=== PATIENT | male | born 1955 | race Caucasian/White ===

== ENCOUNTER 2025-07-04 22:13 | Inpatient (IN) ==
[2025-07-04] MEDS: ALBUT/IPRATROP 3MG/0.5MG NEB 3 ML VIAL INH STA (22:28)
[2025-07-04] MEDS: ALBUT/IPRATROP 3MG/0.5MG NEB 3 ML VIAL ONE (22:28)
--- NOTE | 2025-07-04 22:38 | Emergency Department Note ---
History of Present Illness General Chief complaint: Shortness of Breath/Dyspnea Stated complaint: TROUBLE BREATHING Time Seen by Provider: 07/04/25 22:15 History of Present Illness This 70-year-old male on warfarin with a past medical history of A-fib and diabetes presents the ER for acute onset of shortness of breath. No history of heart failure, COPD or asthma. Patient does not smoke. Patient states this afternoon he started feeling short of breath and got progressively worse. He was concerned and came in. Patient denies fever, chills, abdominal pain, leg pain or swelling. He is on Trulicity for diabetes. Home Medications Medication Instructions Recorded Confirmed Type metoprolol succinate 25 mg 50 mg PO BID 01/01/21 07/04/25 History tablet,extended release 24 hr lisinopril 10 mg tablet 10 mg PO QAM 01/04/23 07/04/25 History warfarin 5 mg tablet 5 mg PO QPM 01/04/23 07/04/25 History dulaglutide 3 mg/0.5 mL 3 mg subcut WK 07/04/25 07/04/25 History [facility] gabapentin 400 mg capsule 400 mg PO TID 07/04/25 07/04/25 History polyethylene glycol 3350 17 17 g PO DAILY PRN Constipation 07/04/25 07/04/25 History gram/dose oral powder (Miralax) Allergies Allergy/AdvReac Type Severity Reaction Status Date / Time Latex, Natural Rubber Allergy Intermediate Rash Verified 07/04/25 23:28 Past Med/Surg History Problem List (Updated 07/05/25 @ 01:22 by Salma Hughes PA-C) Subtherapeutic international normalized ratio (INR) (Acute) New onset of congestive heart failure (Acute) COVID-19 (Acute) Hypertension Dislocation of proximal interphalangeal joint of right little finger (Acute) Fall (Acute) Head injury (Acute) Scalp laceration (Acute) Medical History Atrial fibrillation Surgical History No pertinent past surgical history Social History Smoking Status: Never smoker Preferred Language: Austrian Feels Safe at Home: Yes Review of Systems A total of 10 systems reviewed and were otherwise negative Physical Exam Vital Signs Vital Signs - 24 hr 07/04/25 22:14 07/04/25 22:23 07/04/25 22:33 Temperature 37 C Temperature Source Temporal Artery Scan Pulse Rate 109 H 124 H Pulse Rate from SpO2 Sensor Pulse Rhythm Regular Pulse Strength Normal Respiratory Rate 30 H Respiratory Effort / Characteristics Non-Labored Spontaneous Respiratory Depth Normal Respiratory Pattern Regular Blood Pressure 184/122 H Blood Pressure Mean 142 Blood Pressure Position Sitting Pulse Oximetry 92 100 Oxygen Delivery Method Room Air Aerosol Mask Sepsis Recent Fever Within 48 Hours No Sepsis New/Unexplained Change in Mental Status N/A Sepsis Action Taken by Nursing No Action Required 07/04/25 22:33 07/04/25 22:45 07/04/25 23:30 Temperature 37.1 C Temperature Source Pulse Rate 124 H 143 H Pulse Rate from SpO2 Sensor Pulse Rhythm Pulse Strength Respiratory Rate 22 22 Respiratory Effort / Characteristics Respiratory Depth Respiratory Pattern Blood Pressure 160/111 H 166/107 H Blood Pressure Mean 127 126 Blood Pressure Position Pulse Oximetry 99 92 Oxygen Delivery Method Aerosol Mask Nebulizer Sepsis Recent Fever Within 48 Hours Sepsis New/Unexplained Change in Mental Status Sepsis Action Taken by Nursing 07/04/25 23:45 07/04/25 23:45 07/05/25 00:00 Temperature Temperature Source Pulse Rate 83 81 83 Pulse Rate from SpO2 Sensor 83 Pulse Rhythm Pulse Strength Respiratory Rate 22 18 20 Respiratory Effort / Characteristics Respiratory Depth Respiratory Pattern Blood Pressure 129/79 129/79 131/74 Blood Pressure Mean 95 87 93 Blood Pressure Position Pulse Oximetry 93 94 92 Oxygen Delivery Method Sepsis Recent Fever Within 48 Hours Sepsis New/Unexplained Change in Mental Status Sepsis Action Taken by Nursing 07/05/25 00:15 07/05/25 00:40 07/05/25 00:45 Temperature Temperature Source Pulse Rate 101 H 84 107 H Pulse Rate from SpO2 Sensor Pulse Rhythm Pulse Strength Respiratory Rate 20 18 22 Respiratory Effort / Characteristics Respiratory Depth Respiratory Pattern Blood Pressure 145/95 H 150/110 H 154/92 H Blood Pressure Mean 108 128 118 Blood Pressure Position Pulse Oximetry 94 93 94 Oxygen Delivery Method Sepsis Recent Fever Within 48 Hours Sepsis New/Unexplained Change in Mental Status Sepsis Action Taken by Nursing 07/05/25 01:06 Temperature Temperature Source Pulse Rate 95 H Pulse Rate from SpO2 Sensor 92 H Pulse Rhythm Pulse Strength Respiratory Rate 22 Respiratory Effort / Characteristics Respiratory Depth Respiratory Pattern Blood Pressure 159/104 H Blood Pressure Mean 122 Blood Pressure Position Pulse Oximetry 93 Oxygen Delivery Method Sepsis Recent Fever Within 48 Hours Sepsis New/Unexplained Change in Mental Status Sepsis Action Taken by Nursing VITALS: Vitals are noted on the nurse's note and reviewed by myself. Vital signs stable. GENERAL: Pleasant gentleman who appears short of breath working to breathe, in acute distress, nondiaphoretic, well-developed well-nourished. SKIN: Capillary reflex less than 2 seconds. HEENT: Normocephalic. PERRLA. EOMI. Nares patent. Mucous membranes moist. Neck is supple without nuchal rigidity. HEART: Tachycardic irregularly irregular LUNGS: Diffuse inspiratory and end expiratory wheezes . + retractions + accessory muscle use. ABDOMEN: Positive bowel sounds x 4. Normal tympanic percussion. Soft, nontender, without masses or organomegaly. Evans sign negative. No guarding or rebound tenderness. no CVA tenderness MUSCULOSKELETAL: No gross musculoskeletal defects. NEURO: Patient was alert and oriented to person place and time. No focal neurological deficits. Course Administered Medications Discontinued Medications Albuterol (Albut/Ipratrop 3mg/0.5mg Neb 3 Ml Vial) Confirm Administered Dose 3 ml .ROUTE .STK-MED ONE Stop: 07/04/25 22:24 Last Admin: 07/04/25 22:28 Dose: 3 ml Documented By: ROLANDO Albuterol (Albut/Ipratrop 3mg/0.5mg Neb 3 Ml Vial) 3 ml INH NOW STA Stop: 07/04/25 22:25 Last Admin: 07/04/25 22:28 Dose: 3 ml Documented By: ROLANDO Diltiazem HCl (Diltiazem Hcl 5 Mg/Ml 5 Ml Vial) 20 mg IV NOW STA Stop: 07/04/25 23:17 Last Admin: 07/04/25 23:30 Dose: 20 mg Documented By: DONAVAN Co-signed By: ROLANDO Furosemide (Furosemide 40 Mg/4 Ml Vial) 40 mg IV ONE ONE Stop: 07/05/25 00:19 Last Admin: 07/05/25 00:41 Dose: 40 mg Documented By: ROLANDO Ioversol (Optiray 320 100ml) 120 ml IV ONCE ONE Stop: 07/05/25 00:22 Last Admin: 07/05/25 00:21 Dose: 120 ml Documented By: NATACHA Methylprednisolone (Methylprednisolone 125 Mg/2 Ml Vial) 125 mg IV NOW STA Stop: 07/04/25 22:25 Last Admin: 07/04/25 22:35 Dose: 125 mg Documented By: ROLANDO Metoprolol Succinate (Metoprolol Succ 50mg Ext Rel Tab) 50 mg PO NOW STA Stop: 07/05/25 01:06 Last Admin: 07/05/25 01:19 Dose: 50 mg Documented By: ROLANDO Potassium Chloride (Potassium Chloride Crtab 20 Meq Tabcr) 40 meq PO NOW STA Stop: 07/05/25 01:06 Last Admin: 07/05/25 01:19 Dose: 40 meq Documented By: ROLANDO Medical Decision Making Medical Records Attestation: I reviewed the patient's medical records. Home Medications Current Medication List: was personally reviewed by me Laboratory Data Attestation: I reviewed the patient's lab results. 07/04/25 22:30 07/04/25 22:30 Lab Results 07/04/25 07/04/25 07/05/25 Range/Units 22:30 23:35 00:57 WBC 7.61 (4.8-10.8) K/ul RBC 4.74 (4.70-6.10) M/uL Hgb 16.0 (14.0-18.0) g/dl Hct 45.1 (42.0-52.0) % MCV 95.1 (80.0-100.0) fL MCH 33.8 (25.0-34.0) pg MCHC 35.5 (32.0-36.0) g/dL RDW Std Deviation 43.3 (36.4-46.3) fL RDW Coeff of Robi 12.5 (11.5-14.5) % Plt Count 180 (130-400) K/uL MPV 10.8 (9.4-12.4) fL Immature Gran % (Auto) 0.5 % Neut % (Auto) 70.4 % Lymph % (Auto) 17.5 % [place] % (Auto) 7.5 % Eos % (Auto) 3.3 % Baso % (Auto) 0.8 % Neut # (Auto) 5.36 (1.40-6.50) K/uL Lymph # (Auto) 1.33 (1.20-3.40) K/uL [place] # (Auto) 0.57 (0.11-0.59) K/uL Eos # (Auto) 0.25 (0.00-0.50) K/uL Baso # (Auto) 0.06 (0.00-0.20) K/uL Immature Gran # (Auto) 0.04 (0.01-0.20) K/uL PT 19.7 H (9.0-12.0) Seconds INR 1.9 H (0.9-1.1) APTT 33 H (21-31) Seconds PTT Ratio 1.2 VBG pH Cancelled 7.42 H VBG pCO2 Cancelled 49 VBG pO2 Cancelled 41 VBG HCO3 Cancelled 32 VBG O2 Saturation Cancelled 71.6 VBG Base Excess Cancelled 6.1 Barometric Pressure Cancelled Sodium 142 (136-145) mmol/L Potassium 3.8 (3.5-5.1) mmol/L Chloride 103 (98-107) mmol/L Carbon Dioxide 30 (21-32) mmol/L Anion Gap 9 (3-11) BUN 15 (6-23) mg/dl Creatinine 1.23 (0.6-1.4) mg/dl Est Cr Clr Drug Dosing 63.6 ml/min eGFR 62.38 BUN/Creatinine Ratio 12.2 (10-20) Glucose 153 H (70-99(Fasting)) mg/dl Calcium 9.7 (8.6-10.3) mg/dl Magnesium 2.0 (1.7-2.4) mg/dl Total Bilirubin 0.8 (0.2-1.0) mg/dl AST 22 (13-39) U/L ALT 21 (7-52) U/L Alkaline Phosphatase 63 (34-104) U/L Troponin I High Sens 9.5 (0-20) pg/ml B-Natriuretic Peptide 207 H (0-100) pg/ml Total Protein 8.1 (6.0-8.3) gm/dl Albumin 5.0 (3.4-5.0) gm/dl Globulin 3.1 (2.5-4.0) gm/dl Albumin/Globulin Ratio 1.6 (0.9-2) Urine Color Yellow Urine Appearance Clear (Clear) Urine pH 7.0 (4.5-7.5) Ur Specific [place] 1.028 (1.000-1.030) Urine Protein 2+ H (Negative) Urine Glucose (UA) Negative (Negative) Urine Ketones Negative (Negative) Urine Blood Negative (Negative) Urine Nitrite Negative (Negative) Urine Bilirubin Negative (Negative) Urine Urobilinogen Negative (Negative) Ur Leukocyte Esterase Negative (Negative) Urine WBC (Auto) 0-5 (0-5) /hpf Urine RBC (Auto) 0-2 (0-2) /hpf U Hyaline Cast (Auto) 0-2 (0-2) /lpf U Epithel Cells (Auto) 0-2 (0-2) /hpf Urine Bacteria (Auto) None Seen (None Seen) Urine Comment Imaging Data Attestation: I personally reviewed and interpreted this imaging study as follows: Radiologist's Impression: Chest X-Ray 07/04/25 22:24 Exam(s): XR CXR 1 VIEW EXAM: XR Chest, 1 View CLINICAL HISTORY: Reason for exam: Dyspnea. TECHNIQUE: Frontal view of the chest. COMPARISON: X-ray chest: 01/04/2023 FINDINGS: Lungs: Hyperinflated lungs. Bilateral bronchial wall and perihilar bronchovascular/interstitial thickening increased since comparison.. No consolidation. Pleural space: Unremarkable. No pneumothorax. Heart: There is cardiomegaly. Mediastinum: Persistently widened superior mediastinum. Bones/joints: Osteopenia. No acute fracture. IMPRESSION: Cardiomegaly and mild pulmonary vascular congestion. Recommend clinical correlation. . Electronically signed by: Amando Dia MD, DABR 07/05/25 00:25 AM Chest CTA 07/05/25 00:18 EXAM: CT angio chest PE protocol CLINICAL HISTORY: PE TECHNIQUE: Contiguous axial images were obtained from the neck base through the upper abdomen following intravenous administration of iodinated contrast material. Angiographic images were processed, 3D MIP images were acquired for interpretation. If IV contrast material had not been administered, the likelihood of detecting abnormalities relevant to the patient's condition would have been substantially decreased. Coronal and sagittal 3-D MIPs were likewise performed and indicated to increase the sensitivity of detectin diffuse clinically relevant pathology. CT scan was performed according to ALARA (as low as reasonable achievable). COMPARISON: None. FINDINGS: Few atelectatic bands are noted involving bilateral lung bases. Tiny nodule of size 6 mm is noted involving right lower lobe - appears lung RADS category 2 /benign. Adequate contrast bolus without evidence of pulmonary embolism. The central airways are patent. Rest of lungs are clear. No pleural effusion. The heart, aorta, and pulmonary arteries are of normal size and configuration. There are no appreciable coronary artery and aortic atherosclerotic calcifications. No pericardial effusion is identified. The thyroid is unremarkable. No mediastinal, hilar, or axillary lymphadenopathy is noted. No suspicious lytic or sclerotic osseous lesions are identified. IMPRESSION: No evidence of pulmonary embolism Few atelectatic bands are noted involving bilateral lung bases. Tiny nodule of size 6 mm is noted involving right lower lobe - appears lung RADS category 2 /benign. Electronically signed by Orestes Leblanc 07-05-2025 01:28 AM MDM Narrative Prior records/ancillary studies reviewed. Triage Nursing notes reviewed. Additional history obtained from the family. The patient's history was concerning for respiratory difficulties. Differential diagnosis: Etiologies such as infections, reactive airway disease, pneumonia, pneumothorax, COPD, CHF, cardiac ischemia, pulmonary embolism, musculoskeletal, gastrointestinal, as well as others were entertained. Physical examination: As above. ER treatment provided: An order was placed for continuous cardiac monitoring. The monitor shows a rate of 60-1 50 with a A-fib rhythm per my interpretation. Nebulizer, Solu-Medrol, Cardizem Lasix was ordered On reassessment the patient felt better. Diagnostic interpretation by me: The electrocardiogram was ordered for SOB. ECG: Irregularly irregular with no acute ST-T wave changes, rate 132. Impression A-fib with RVR independently interpreted by myself The labs Independently Interpreted by myself revealed subtherapeutic INR Elevated BNP, negative troponin, hyperglycemia that DKA Imaging studies: Imaging was reviewed and read by radiology HEART SCORE: Hx: high/mod/low suspicion: 1 ECG: ST depression/nonspecific changes/normal: 1 Age: Greater than 65/45-64/less than 45: 2 Risk factors: (Hypertension, hyperlipidemia, diabetes, coronary disease, tobacco use, cocaine use): 2 Troponin: Greater than 2 times normal limits/1-2 times normal limits/normal: 0 Total: 6 Consultation: A consultation was placed with the hospitalist. The case was discussed and diagnostics were reviewed. The patient was evaluated in the ER for further treatment. This appears to be consistent with new onset heart failure and subtherapeutic INR. Patient felt better to be medicated as above. Medicine was consulted and case was discussed. He will be evaluated for admission. By the evaluation outlined above emergent etiologies such as pulmonary embolism, reactive airway disease, pneumonia, pneumothorax, musculoskeletal, serious bacterial infections, as well as others were deemed relatively unlikely. The pt informed about the findings as listed above. All questions were answered and pleased with the treatment. The chart was completed utilizing [employer] Speech voice recognition software. Grammatical errors, random word insertions, pronoun errors, and incomplete sentences are an occassional consequence of this system due to software limitations, ambient noise, and hardware issues. Any formal questions or concerns about the content, text, or information contained within the body of this dictation should be directly addressed to the physician seed laboratory assistant for clarification. Impression & Plan New onset of congestive heart failure, Subtherapeutic international normalized ratio (INR) Discharge Plan Visit Data Chief Complaint: Shortness of Breath/Dyspnea Stated Complaint: TROUBLE BREATHING ED Provider: [facility] Midlevel Provider: Salma Hughes Discharge Problem: New onset of congestive heart failure, Subtherapeutic international normalized ratio (INR) Patient Disposition: Admitted As Inpatient Condition: Good Forms Stand Alone Forms: [employer] Prescriptions Prescriptions: No Action metoprolol succinate 25 mg tablet extended release 24 hr 50 mg PO BID lisinopril 10 mg tablet 10 mg PO QAM warfarin 5 mg tablet 5 mg PO QPM gabapentin 400 mg capsule 400 mg PO TID polyethylene glycol 3350 [Miralax] 17 gram/dose Powder 17 g PO DAILY PRN (Reason: Constipation) Trulicity 3 mg/0.5 mL pen injector 3 mg SUBCUT WK Rx Instructions: [facility] Referrals Referrals: Kevin Hawthorne MD [Primary Care Provider] -
[2025-07-04 22:55] LABS: Hematocrit (blood only) 45.1 % (42.0-52.0); Hemoglobin 16.0 g/dl (14.0-18.0); Immature Granulocytes # (auto) 0.04 K/uL (0.01-0.20); Immature Granulocytes % (auto) 0.5 %; Mean Corpuscular Hemoglobin 33.8 pg (25.0-34.0); Mean Corpuscular Volume 95.1 fL (80.0-100.0); Platelet Count 180 K/uL (130-400); RDW Standard Deviation 43.3 fL (36.4-46.3); Red Blood Count 4.74 M/uL (4.70-6.10); White Blood Count 7.61 K/ul (4.8-10.8)
[2025-07-04 23:20] LABS: INR 1.9 (0.9-1.1); Partial Thromboplastin Time 33 Seconds (21-31); Prothrombin Time 19.7 Seconds (9.0-12.0)
[2025-07-04 23:22] LABS: Alanine Aminotransferase 21.0 U/L (7-52); Albumin Globulin Ratio 1.6 (0.9-2); Alkaline Phosphatase 63.0 U/L (34-104); Anion Gap 9.0 (3-11); Bilirubin,Total 0.8 mg/dl (0.2-1.0); Blood Urea Nitrogen 15.0 mg/dl (6-23); Calcium 9.7 mg/dl (8.6-10.3); Carbon Dioxide 30.0 mmol/L (21-32); Chloride 103.0 mmol/L (98-107); Creatinine Clr Calc Pharmacy 63.6 ml/min; Globulin 3.1 gm/dl (2.5-4.0); Glucose 153.0 mg/dl (70-99(Fasting)); Magnesium 2.0 mg/dl (1.7-2.4); Potassium 3.8 mmol/L (3.5-5.1); Sodium 142.0 mmol/L (136-145); Total Protein 8.1 gm/dl (6.0-8.3)
[2025-07-05 00:11] LABS: Base Excess VBG 6.1 mEq/L; HCO3 VBG 32 mmol/L; Oxygen Saturation VBG 71.6 %; PCO2 VBG 49 mmHg (38-50); PO2 VBG 41 mmHg; pH VBG 7.42 (7.36-7.41)
[2025-07-05] MEDS: OPTIRAY 320 100ml IV ONE (00:21)
--- NOTE | 2025-07-05 00:26 | XRay Report ---
Exam(s): XR CXR 1 VIEW EXAM: XR Chest, 1 View CLINICAL HISTORY: Reason for exam: Dyspnea. TECHNIQUE: Frontal view of the chest. COMPARISON: X-ray chest: 01/04/2023 FINDINGS: Lungs: Hyperinflated lungs. Bilateral bronchial wall and perihilar bronchovascular/interstitial thickening increased since comparison.. No consolidation. Pleural space: Unremarkable. No pneumothorax. Heart: There is cardiomegaly. Mediastinum: Persistently widened superior mediastinum. Bones/joints: Osteopenia. No acute fracture. IMPRESSION: Cardiomegaly and mild pulmonary vascular congestion. Recommend clinical correlation. . Electronically signed by: Amando Dia MD, NEENAR 07/05/25 00:25 AM
[2025-07-05] MEDS: FUROSEMIDE 40 MG/4 ML VIAL IV ONE ×2 (00:41→14:09)
--- NOTE | 2025-07-05 00:54 | Emergency Department Note ---
ED Visit Note I was consulted by the Advanced Practice Provider. I personally made/approved the management plan and take responsibility for the patient management. This includes the aspects of: -History/Physical -MDM
--- NOTE | 2025-07-05 01:11 | History & Physical Report ---
Date of Service July 05, 2025 Assessment & Plan (1) CHF (congestive heart failure): Plan: Assessment and plan below following discussion of case with ED provider and reviewing patient history/pertinent normal/abnormal diagnostic test results. Acute CHF History of diastolic dysfunction Possibly from uncontrolled hypertension, rapid A-fib, viral RTI Afib on Coumadin, INR slightly subtherapeutic LVH with apical variant HOCM valvular heart disease (mild MR/TR) hyperlipidemia, statin noncompliant as per records DM 2 on Trulicity, well-controlled as of recent hemoglobin A1c of 6.6 last March 2025 Admit to PCU IV Lopressor 1 dose now Titrate home metoprolol Cardiology consult re: CHF BioFire respiratory panel Supportive management presumptive viral illness Basal bolus insulin, ISS BG goal 110-140, carb count coverage DVT prophylaxis. Coumadin INR goal between 2 and 3 Full code Text document was generated using QuadRO[employer] voice recognition software. It may contain grammatical or spelling errors. Kindly contact undersigned for clarification of any documentation item in question. History of Present Illness Chief Complaint: Shortness of breath, palpitations Primary Care Provider: Kevin Hawthorne MD History obtained from patient and records. Medical history significant for diastolic dysfunction (EF 65 to 69%, TTE 2023), A-fib on Coumadin, LVH with apical variant HOCM, valvular heart disease (mild MR/TR), hypertension, hyperlipidemia, DM 2 on Trulicity Last 2011 for syncope resulting in nasal bone fracture. Patient noted cough symptoms productive of clear sputum at home yesterday. SOB without chest pain. No fever, no chills. Not sure about sick contacts. Home COVID-19 test was negative. Worsening SOB with palpitations. Patient unaware of weight gain. Compliant with home meds. Patient noted to be in rapid A-fib upon arrival at the ER. Highest heart rate of 140s. IV Cardizem and Lasix administered at the ER. Medical History as above Surgical History : Tonsillectomy/adenoidectomy Family History : Kidney disease, stroke, DM Personal/Social history : Non-smoker, occasional EtOH intake, retired school licensed journeyman electrician Allergies Allergy/AdvReac Type Severity Reaction Status Date / Time Latex, Natural Rubber Allergy Intermediate Rash Verified 07/04/25 23:28 Home Medications Medication Instructions Recorded Confirmed Type metoprolol succinate 25 mg 50 mg PO BID 01/01/21 07/04/25 History tablet,extended release 24 hr lisinopril 10 mg tablet 10 mg PO QAM 01/04/23 07/04/25 History warfarin 5 mg tablet 5 mg PO QPM 01/04/23 07/04/25 History dulaglutide 3 mg/0.5 mL 3 mg subcut WK 07/04/25 07/04/25 History subcutaneous pen injector (Trulicity) gabapentin 400 mg capsule 400 mg PO TID 07/04/25 07/04/25 History polyethylene glycol 3350 17 17 g PO DAILY PRN Constipation 07/04/25 07/04/25 History gram/dose oral powder (Miralax) Past Med/Surg History Problem List (Updated 07/05/25 @ 06:15 by Eddy Shields MD) CHF (congestive heart failure) Subtherapeutic international normalized ratio (INR) (Acute) New onset of congestive heart failure (Acute) COVID-19 (Acute) Hypertension Dislocation of proximal interphalangeal joint of right little finger (Acute) Fall (Acute) Head injury (Acute) Scalp laceration (Acute) Medical History Atrial fibrillation Surgical History No pertinent past surgical history Social History Smoking Status: Unknown if ever smoked Hx Alcohol Use: No Hx Substance Use: No Preferred Language: Pry[place]in[place] Communication Ability: Effective Bar Supervisor Required: No Beliefs That Will Affect Care: None Current Living Situation: Alone Feels Safe at Home: Yes Safety Concerns: Feels Safe At This Time Review of Systems Review of Systems: As per HPI, all other systems reviewed and negative Physical Exam Physical Exam: GENERAL: Comfortable, pleasant, obese, no respiratory distress SKIN: Normal color, warm HEENT: [place] palpebral conjunctivae, no ptosis, dry buccal mucosa NECK : Supple, short neck, no tenderness CHEST : CTA, no tenderness HEART : Irregular, no obvious murmurs ABDOMEN: Some distention, nontender EXTREMITIES : No LE swelling/tenderness, palpable pulses, no other conspicuous deformities noted NEUROLOGIC : Coherent, no facial asymmetry, no other gross focality Results & Data Results & Data Vital Signs (Past 12 Hours) Vital Signs Temp Pulse Resp BP Pulse Ox O2 Del Method 07/05/25 00:40 84 18 150/110 H 93 07/05/25 00:15 101 H 20 145/95 H 94 07/05/25 00:00 83 20 131/74 92 07/04/25 23:45 81 18 129/79 94 07/04/25 23:45 83 22 129/79 93 07/04/25 23:30 143 H 22 166/107 H 92 07/04/25 22:45 37.1 C 124 H 22 160/111 H 99 Nebulizer 07/04/25 22:33 Aerosol Mask 07/04/25 22:33 100 Aerosol Mask 07/04/25 22:23 124 H 07/04/25 22:14 37 C 109 H 30 H 184/122 H 92 Room Air Laboratory Results Laboratory Results WBC 7.61 K/ul (4.8-10.8) 07/04/25 22:30 RBC 4.74 M/uL (4.70-6.10) 07/04/25 22:30 Hgb 16.0 g/dl (14.0-18.0) 07/04/25 22:30 Hct 45.1 % (42.0-52.0) 07/04/25 22:30 MCV 95.1 fL (80.0-100.0) 07/04/25 22:30 MCH 33.8 pg (25.0-34.0) 07/04/25 22:30 MCHC 35.5 g/dL (32.0-36.0) 07/04/25 22:30 RDW Std Deviation 43.3 fL (36.4-46.3) 07/04/25 22:30 RDW Coeff of Robi 12.5 % (11.5-14.5) 07/04/25 22:30 Plt Count 180 K/uL (130-400) 07/04/25 22:30 MPV 10.8 fL (9.4-12.4) 07/04/25 22:30 Immature Gran % (Auto) 0.5 % 07/04/25 22:30 Neut % (Auto) 70.4 % 07/04/25 22:30 Lymph % (Auto) 17.5 % 07/04/25 22:30 [place] % (Auto) 7.5 % 07/04/25 22:30 Eos % (Auto) 3.3 % 07/04/25 22:30 Baso % (Auto) 0.8 % 07/04/25 22:30 Neut # (Auto) 5.36 K/uL (1.40-6.50) 07/04/25 22:30 Lymph # (Auto) 1.33 K/uL (1.20-3.40) 07/04/25 22:30 [place] # (Auto) 0.57 K/uL (0.11-0.59) 07/04/25 22:30 Eos # (Auto) 0.25 K/uL (0.00-0.50) 07/04/25 22:30 Baso # (Auto) 0.06 K/uL (0.00-0.20) 07/04/25 22:30 Immature Gran # (Auto) 0.04 K/uL (0.01-0.20) 07/04/25 22:30 PT 19.7 Seconds (9.0-12.0) H 07/04/25 22:30 INR 1.9 (0.9-1.1) H 07/04/25 22:30 APTT 33 Seconds (21-31) H 07/04/25 22:30 PTT Ratio 1.2 07/04/25 22:30 VBG pH 7.42 (7.36-7.41) H 07/04/25 23:35 VBG pCO2 49 mmHg (38-50) 07/04/25 23:35 VBG pO2 41 mmHg 07/04/25 23:35 VBG HCO3 32 mmol/L 07/04/25 23:35 VBG O2 Saturation 71.6 % 07/04/25 23:35 VBG Base Excess 6.1 mEq/L 07/04/25 23:35 Barometric Pressure Cancelled 07/04/25 22:30 Sodium 142 mmol/L (136-145) 07/04/25 22:30 Potassium 3.8 mmol/L (3.5-5.1) 07/04/25 22:30 Chloride 103 mmol/L (98-107) 07/04/25 22:30 Carbon Dioxide 30 mmol/L (21-32) 07/04/25 22:30 Anion Gap 9 (3-11) 07/04/25 22:30 BUN 15 mg/dl (6-23) 07/04/25 22:30 Creatinine 1.23 mg/dl (0.6-1.4) 07/04/25 22:30 Est Cr Clr Drug Dosing 63.6 ml/min 07/04/25 22:30 eGFR 62.38 07/04/25 22:30 BUN/Creatinine Ratio 12.2 (10-20) 07/04/25 22:30 Glucose 153 mg/dl (70-99(Fasting)) H 07/04/25 22:30 Calcium 9.7 mg/dl (8.6-10.3) 07/04/25 22:30 Magnesium 2.0 mg/dl (1.7-2.4) 07/04/25 22:30 Total Bilirubin 0.8 mg/dl (0.2-1.0) 07/04/25 22:30 AST 22 U/L (13-39) 07/04/25 22:30 ALT 21 U/L (7-52) 07/04/25 22:30 Alkaline Phosphatase 63 U/L (34-104) 07/04/25 22:30 Troponin I High Sens 9.5 pg/ml (0-20) 07/04/25 22:30 B-Natriuretic Peptide 207 pg/ml (0-100) H 07/04/25 22:30 Total Protein 8.1 gm/dl (6.0-8.3) 07/04/25 22:30 Albumin 5.0 gm/dl (3.4-5.0) 07/04/25 22:30 Globulin 3.1 gm/dl (2.5-4.0) 07/04/25 22:30 Albumin/Globulin Ratio 1.6 (0.9-2) 07/04/25 22:30 Urine Comment 07/05/25 00:57 Impressions Chest X-Ray 07/04/25 22:24 Exam(s): XR CXR 1 VIEW EXAM: XR Chest, 1 View CLINICAL HISTORY: Reason for exam: Dyspnea. TECHNIQUE: Frontal view of the chest. COMPARISON: X-ray chest: 01/04/2023 FINDINGS: Lungs: Hyperinflated lungs. Bilateral bronchial wall and perihilar bronchovascular/interstitial thickening increased since comparison.. No consolidation. Pleural space: Unremarkable. No pneumothorax. Heart: There is cardiomegaly. Mediastinum: Persistently widened superior mediastinum. Bones/joints: Osteopenia. No acute fracture. IMPRESSION: Cardiomegaly and mild pulmonary vascular congestion. Recommend clinical correlation. . Electronically signed by: Amando Dia MD, DANIEL 07/05/25 00:25 AM Diagnostic Findings EKG as per my interpretation :Rate 130, A-fib, normal axis, nonspecific T wave abnormalities
[2025-07-05 01:12] LABS: Appearance Urine Clear (Clear); Bacteria Urine Automated None Seen (None Seen); Cast Urine Automated 0-2 /lpf (0-2); Epithelial Cell Urine Auto 0-2 /hpf (0-2); Glucose Urine UA Negative (Negative); RBC Urine Automated 0-2 /hpf (0-2); WBC Urine Automated 0-5 /hpf (0-5)
[2025-07-05] MEDS: METOPROLOL SUCC 50MG EXT REL TAB PO STA (01:19)
[2025-07-05] MEDS: POTASSIUM CHLORIDE CRTAB 20 MEQ TABCR PO STA (01:19)
--- NOTE | 2025-07-05 01:28 | CT Scan Report ---
EXAM: CT angio chest PE protocol CLINICAL HISTORY: PE TECHNIQUE: Contiguous axial images were obtained from the neck base through the upper abdomen following intravenous administration of iodinated contrast material. Angiographic images were processed, 3D MIP images were acquired for interpretation. If IV contrast material had not been administered, the likelihood of detecting abnormalities relevant to the patient's condition would have been substantially decreased. Coronal and sagittal 3-D MIPs were likewise performed and indicated to increase the sensitivity of detectin diffuse clinically relevant pathology. CT scan was performed according to ALARA (as low as reasonable achievable). COMPARISON: None. FINDINGS: Few atelectatic bands are noted involving bilateral lung bases. Tiny nodule of size 6 mm is noted involving right lower lobe - appears lung RADS category 2 /benign. Adequate contrast bolus without evidence of pulmonary embolism. The central airways are patent. Rest of lungs are clear. No pleural effusion. The heart, aorta, and pulmonary arteries are of normal size and configuration. There are no appreciable coronary artery and aortic atherosclerotic calcifications. No pericardial effusion is identified. The thyroid is unremarkable. No mediastinal, hilar, or axillary lymphadenopathy is noted. No suspicious lytic or sclerotic osseous lesions are identified. IMPRESSION: No evidence of pulmonary embolism Few atelectatic bands are noted involving bilateral lung bases. Tiny nodule of size 6 mm is noted involving right lower lobe - appears lung RADS category 2 /benign. Electronically signed by Orestes Leblanc 07-05-2025 01:28 AM
[2025-07-05] MEDS ORDERED: GLUCAGON FOR INJ 1 MG VIAL SQ PRN (01:51)
[2025-07-05] MEDS ORDERED: GLUCOSE 10 TAB/TUBE PO PRN (01:51)
[2025-07-05] MEDS ORDERED: CARBOHYDRATES FOR HYPOGLYCEMIA PO PRN (01:51)
[2025-07-05] MEDS ORDERED: DEXTROSE 50% 50 ML SYRINGE IV PRN (01:51)
[2025-07-05] MEDS ORDERED: GLUCOSE 40% GEL 15 GM TUBE PO PRN (01:51)
[2025-07-05] MEDS ORDERED: POLYETHYLENE (MIRALAX) 17 GM PACK PO PRN (02:04)
[2025-07-05] MEDS ORDERED: PROMETHAZINE 6.25 MG/50.25 ML BAG IV PRN (02:05)
[2025-07-05] MEDS ORDERED: ACETAMINOPHEN 325 MG TAB PO PRN (02:05)
[2025-07-05] MEDS: INSULIN ASPART PER UNIT CHARGE SC SCH (02:45)
[2025-07-05] MEDS: WARFARIN SOD 5 MG TAB PO ONE (02:46)
[2025-07-05 04:26] LABS: Chlamydia pneumoniae PCR Not Detected (NotDetected); Coronavirus 229E PCR Not Detected (NotDetected); Coronavirus CoV-2 (COVID19)PCR Not Detected (NotDetected); Coronavirus HKU1 PCR Not Detected (NotDetected); Coronavirus NL63 PCR Not Detected (NotDetected); Coronavirus OC43PCR Not Detected (NotDetected); Human Metapneumovirus PCR Not Detected (NotDetected); Parainfluenza Virus 1 PCR Not Detected (NotDetected); Parainfluenza Virus 2 PCR Not Detected (NotDetected); Parainfluenza Virus 3 PCR Not Detected (NotDetected); Parainfluenza Virus 4 PCR Not Detected (NotDetected); Respiratory Syncytial VirusPCR Not Detected (NotDetected); Rhinovirus/Enterovirus PCR Not Detected (NotDetected)
[2025-07-05] MEDS: METOPROLOL TARTRATE 1 MG/ML VIAL IV STA (05:18)
[2025-07-05 05:57] LABS: Hematocrit (blood only) 43.3 % (42.0-52.0); Hemoglobin 15.4 g/dl (14.0-18.0); Mean Corpuscular Hemoglobin 33.8 pg (25.0-34.0); Mean Corpuscular Volume 95.0 fL (80.0-100.0); Platelet Count 179 K/uL (130-400); RDW Standard Deviation 43.1 fL (36.4-46.3); Red Blood Count 4.56 M/uL (4.70-6.10); White Blood Count 5.24 K/ul (4.8-10.8)
[2025-07-05 06:15] LABS: INR 1.8 (0.9-1.1); Prothrombin Time 18.2 Seconds (9.0-12.0)
[2025-07-05 06:25] LABS: Immature Granulocytes # (auto) 0.02 K/uL (0.01-0.20); Immature Granulocytes % (auto) 0.4 %; RBC Morphology Unremarkable
[2025-07-05 06:30] LABS: Anion Gap 10.0 (3-11); Blood Urea Nitrogen 17.0 mg/dl (6-23); Calcium 9.8 mg/dl (8.6-10.3); Carbon Dioxide 28.0 mmol/L (21-32); Chloride 102.0 mmol/L (98-107); Creatinine Clr Calc Pharmacy 65.8 ml/min; Glucose 178.0 mg/dl (70-99(Fasting)); Potassium 4.0 mmol/L (3.5-5.1); Sodium 140.0 mmol/L (136-145); Thyroid Stimulating Hormone 0.428 uIu/ml (0.300-4.500)
--- NOTE | 2025-07-05 08:47 | Cardiology Consultation ---
Date of Consultation July 05, 2025 Assessment & Plan (1) New onset of congestive heart failure: (2) Hypertrophic cardiomyopathy: (3) Permanent atrial fibrillation: (4) Hypertension: Plan 70 year old male who presented to [facility] ED on 07/05/25 for evaluation of worsening shortness of breath over the past couple of days with associated heart racing and lightheadedness. Seen by cardiology today for evaluation of new onset heart failure excerbation. Found to be in AFIB with RVR with heart rates in 140-150s upon admission. CXR upon admission demonstrated cardiomegaly and mild pulmonary vascular congestion. Received IV Cardizem and Lasix in ED. 1. Permanent AFIB (diagnosed 06/08/21; on warfarin), [id number] score 3 (age, HTN, CHF) -AFIB with elevated ventricular rates in 100-110s with intermittent rates in 120-130s upon telemetry review -Continue metoprolol succinate ER 100 mg BID for rate control -Continue warfarin for anticoagulation with INR goal between 2 to 3 -Will consider starting IV diltiazem gtt for rate control pending ECHO 2. Apical varient hypertrophic cardiomyopathy (diagnosed 2014) 3. Acute on chronic HFpEF, NYHA Class III -Respiratory status improving with IV diuresis and remains on room air -Blood pressure remains elevated likely secondary to volume overload -Kidney function and electrolytes remain stable on AM labs -Give one-time dose IV Lasix 40 mg daily this afternoon -ECHO pending today to assess systolic function and asymmetric left ventricular hypertrophy -Continue to monitor and replace electrolytes as needed (goal K+ 4.0; Mg 2.0) -Daily weights via standing scale and document accurate I&Os -Maintain 2L fluid restriction and 2g sodium restriction 3. Hypertension -Blood pressure remains elevated -Continue lisinopril 10 mg daily Case discussed and coordinated with Dr. Rees. Please see Dr. Rees notes for further recommendations. I spent a total of 45 minutes coordinating, documenting, and providing care for this patient excluding time spent in the performance of separately billed services or time spent by another provider/QHP. RADHA Alfred Department of Cardiology Supervising Physician Co-Signing Physician Notes I spent a total of 50 minutes on the date of service in preparation, delivery, and documentation of the care provided to this patient, excluding any time spent in the performance of separately billed services. I have personally performed a history and physical examination on the patient. I have reviewed the advance practitioner's documentation, and I agree with, and take responsibility for the plan of care. History of Present Illness Reason for Consultation: CHF exacerbation Requesting Physician: Eddy Shields MD Attending Physician: Isreal Ayala MD History of Present Illness 70 year old male who presented to [facility] ED on 07/05/25 for evaluation of worsening shortness of breath. Seen by cardiology today for evaluation of new onset heart failure exacerbation. Sitting comfortably on the edge of the bed in no acute distress. Remains on room air. He noticed difficulty breathing while cooking dinner on (07/03). Shortness of breath got progressively worse over the past couple days. It has felt like his heart is pounding with associated lightheadedness. Sleeps laying flat in bed but occasionally sleeps in a recliner. Denies orthopnea or PND. Denies exertional chest discomfort, lightheadedness, dizziness, syncope, worsening edema, abdominal bloating, loss of appetite, or recent weight gain. Has a dry, non-productive cough. Denies fever, chills, muscle aches, nausea, vomiting, congestion, or flu-like symptoms. Social History: Eats a lot of processed food and does not limit intake of salt. Complaint with medications. Denies difficulty affording or adverse effects with medications. Marijuana use. He typically drinks three beers on the weekends. Denies tobacco use. Family History: Father - Tobacco use; Heart disease Past Medical History: 1. Permanent AFIB (diagnosed 06/08/21; on warfarin), [id number] score 2 (age, HTN) 2. Apical varient hypertrophic cardiomyopathy (diagnosed 2014) 3. Hypertension 4. Hyperlipidemia 5. CKD stage III 6. Type 2 diabetes mellitus Allergies Allergy/AdvReac Type Severity Reaction Status Date / Time Latex, Natural Rubber Allergy Intermediate Rash Verified 07/04/25 23:28 Home Medications Medication Instructions Recorded Confirmed Type metoprolol succinate 25 mg 50 mg PO BID 01/01/21 07/04/25 History tablet,extended release 24 hr lisinopril 10 mg tablet 10 mg PO QAM 01/04/23 07/04/25 History warfarin 5 mg tablet 5 mg PO QPM 01/04/23 07/04/25 History dulaglutide 3 mg/0.5 mL 3 mg subcut WK 07/04/25 07/04/25 History subcutaneous pen injector (Trulicity) gabapentin 400 mg capsule 400 mg PO TID 07/04/25 07/04/25 History polyethylene glycol 3350 17 17 g PO DAILY PRN Constipation 07/04/25 07/04/25 History gram/dose oral powder (Miralax) Patient History Medical History Atrial fibrillation Surgical History No pertinent past surgical history Social History Smoking Status: Unknown if ever smoked Hx Alcohol Use: No Hx Substance Use: No Preferred Language: Armenian Communication Ability: Effective Bottle House Pumper Required: No Beliefs That Will Affect Care: None Current Living Situation: Alone Feels Safe at Home: Yes Safety Concerns: Feels Safe At This Time Review of Systems Review of Systems: See HPI for pertinent positives. All others negative other than those noted in the HPI. CONSTITUTIONAL: No change in weight, No weakness, No fatigue, No fevers, No sweats or chills. HEENT: No visual changes, No epistaxis, No bleeding gums, No dysphagia, PULMONARY: +shortness of breath; non-productive cough. No sputum, or hemoptysis, No wheezing, and No recent change in breathing. CARDIOVASCULAR: +dyspnea on exertion. No chest pain, No edema, No palpitations, No syncope, No claudication, No calf pain. GASTROINTESTINAL: No change in appetite, No abdominal pain, No change in bowel habits, No significant heartburn, No nausea, No vomiting, No diarrhea, No constipation, No blood in stools or black tarry stools, No dysphagia. HEMATOLOGIC: No abnormal bleeding and No bruising. NEUROLOGICAL: +lightheadedness. No falls, Normal balance, No headaches, and No weakness. PSYCH: No sleep disturbances, No mood changes. Physical Exam Physical Exam: Vital signs within normal limits as above. General: Well developed and nourished. No acute distress. A+Ox3. HEENT: Normocephalic. Atraumatic. EOMI. Conjunctiva and sclera clear. NECK: Trachea midline. No thyromegaly. No carotid bruits. No JVD. Carotid upstrokes are brisk. Heart: Tachycardic. Irregularly irregular rhythm. S1 and S2 noted. No murmur. No rubs or gallops. PMI non displaced. Lungs: Diminished breath sounds throughout bilateral posterior lower lobes. No wheezes.No rhonchi. No rales. Abdomen: Protuberant. Normal bowel sounds. Soft. Nontender. No abdominal bruits. Extremities: Trace BLE edema. Normal capillary refill. No clubbing or cyanosis. Pulses: radial=2/4, dorsal pedis=2/4. Skin: Warm and dry. NEURO: No focal deficits. PSYCH: Appropriate affect and insight. Results & Data Vital Signs (Past 12 Hours) Vital Signs Temp Pulse Resp BP Pulse Ox Pulse Ox O2 Del Method 07/05/25 08:38 115 H 07/05/25 06:33 107 H 147/96 H 07/05/25 05:18 109 H 149/96 H 07/05/25 03:03 108 H 17 92 07/05/25 02:47 108 H 18 138/97 92 Room Air 07/05/25 02:11 Room Air 07/05/25 01:51 95 07/05/25 01:31 149/79 H 07/05/25 01:29 100 H 18 147/116 H 95 07/05/25 01:06 95 H 22 159/104 H 93 07/05/25 00:45 107 H 22 154/92 H 94 07/05/25 00:40 84 18 150/110 H 93 07/05/25 00:15 101 H 20 145/95 H 94 07/05/25 00:00 83 20 131/74 92 07/04/25 23:45 81 18 129/79 94 07/04/25 23:45 83 22 129/79 93 07/04/25 23:30 143 H 22 166/107 H 92 07/04/25 22:45 37.1 C 124 H 22 160/111 H 99 Nebulizer 07/04/25 22:33 Aerosol Mask 07/04/25 22:33 100 Aerosol Mask 07/04/25 22:23 124 H 07/04/25 22:14 37 C 109 H 30 H 184/122 H 92 Room Air Laboratory Results Cardiac Enzymes 07/04/25 07/05/25 Range/Units 22:30 00:30 AST 22 (13-39) U/L Troponin I High Sens 9.5 8.1 (0-20) pg/ml B-Natriuretic Peptide 207 H (0-100) pg/ml Coagulation 07/04/25 07/05/25 Range/Units 22:30 04:50 PT 19.7 H 18.2 H (9.0-12.0) Seconds APTT 33 H (21-31) Seconds B-Natriuretic Peptide 207 H (0-100) pg/ml CBC 07/04/25 07/05/25 Range/Units 22:30 04:50 WBC 7.61 5.24 (4.8-10.8) K/ul RBC 4.74 4.56 L (4.70-6.10) M/uL Hgb 16.0 15.4 (14.0-18.0) g/dl Hct 45.1 43.3 (42.0-52.0) % Plt Count 180 179 (130-400) K/uL Neut # (Auto) 5.36 4.81 (1.40-6.50) K/uL Lymph # (Auto) 1.33 0.36 L (1.20-3.40) K/uL [place] # (Auto) 0.57 0.04 L (0.11-0.59) K/uL Eos # (Auto) 0.25 0.00 (0.00-0.50) K/uL Baso # (Auto) 0.06 0.01 (0.00-0.20) K/uL Comprehensive Metabolic Panel 07/04/25 07/05/25 Range/Units 22:30 04:50 Sodium 142 140 (136-145) mmol/L Potassium 3.8 4.0 (3.5-5.1) mmol/L Chloride 103 102 (98-107) mmol/L Carbon Dioxide 30 28 (21-32) mmol/L BUN 15 17 (6-23) mg/dl Creatinine 1.23 1.19 (0.6-1.4) mg/dl Glucose 153 H 178 H (70-99(Fasting)) mg/dl Calcium 9.7 9.8 (8.6-10.3) mg/dl AST 22 (13-39) U/L ALT 21 (7-52) U/L Alkaline Phosphatase 63 (34-104) U/L Total Protein 8.1 (6.0-8.3) gm/dl Albumin 5.0 (3.4-5.0) gm/dl Intake and Output 07/04/25 07/05/25 07/05/25 22:59 06:59 14:59 Other: Weight 104.6 kg Weight Measurement Method Built in [facility] Diagnostic Findings EKG done on 07/04/25 personally reviewed and demonstrated atrial fibrillation with rapid ventricular response with rate 132 beats per minute and QTc 471 ms ECHO 04/02/24 The rhythm is atrial fibrillation with intermittent rapid ventricular response. The qualitative LV ejection fraction is 65-69% (normal). There is asymmetric left ventricular hypertrophy. The asymmetric hypertrophy involves the apex. Focal thinning and akinesis of the apical cap. Otherwise, normal wall motion. The left atrium is moderately enlarged (42-48 ml/m^2). Moderate aortic valve sclerosis is present. Mild mitral regurgitation is present. Mild tricuspid regurgitation is present. There is no evidence of pulmonary hypertension. Compared to last available study changes are noted as follows: Focal apical akinesis now present Chest X-Ray 07/04/25 22:24 Exam(s): XR CXR 1 VIEW EXAM: XR Chest, 1 View CLINICAL HISTORY: Reason for exam: Dyspnea. TECHNIQUE: Frontal view of the chest. COMPARISON: X-ray chest: 01/04/2023 FINDINGS: Lungs: Hyperinflated lungs. Bilateral bronchial wall and perihilar bronchovascular/interstitial thickening increased since comparison.. No consolidation. Pleural space: Unremarkable. No pneumothorax. Heart: There is cardiomegaly. Mediastinum: Persistently widened superior mediastinum. Bones/joints: Osteopenia. No acute fracture. IMPRESSION: Cardiomegaly and mild pulmonary vascular congestion. Recommend clinical correlation. Electronically signed by: Amando Dia MD, DABR 07/05/25 00:25 AM Chest CTA 07/05/25 00:18 EXAM: CT angio chest PE protocol CLINICAL HISTORY: PE TECHNIQUE: Contiguous axial images were obtained from the neck base through the upper abdomen following intravenous administration of iodinated contrast material. Angiographic images were processed, 3D MIP images were acquired for interpretation. If IV contrast material had not been administered, the likelihood of detecting abnormalities relevant to the patient's condition would have been substantially decreased. Coronal and sagittal 3-D MIPs were likewise performed and indicated to increase the sensitivity of detectin diffuse clinically relevant pathology. CT scan was performed according to ALARA (as low as reasonable achievable). COMPARISON: None. FINDINGS: Few atelectatic bands are noted involving bilateral lung bases. Tiny nodule of size 6 mm is noted involving right lower lobe - appears lung RADS category 2 /benign. Adequate contrast bolus without evidence of pulmonary embolism. The central airways are patent. Rest of lungs are clear. No pleural effusion. The heart, aorta, and pulmonary arteries are of normal size and configuration. There are no appreciable coronary artery and aortic atherosclerotic calcifications. No pericardial effusion is identified. The thyroid is unremarkable. No mediastinal, hilar, or axillary lymphadenopathy is noted. No suspicious lytic or sclerotic osseous lesions are identified. IMPRESSION: No evidence of pulmonary embolism Few atelectatic bands are noted involving bilateral lung bases. Tiny nodule of size 6 mm is noted involving right lower lobe - appears lung RADS category 2 /benign. Electronically signed by Orestes Leblanc 07-05-2025 01:28 AM PG Care Time/CCT Total # of Minutes Spent Total Time Spent: 45 Total Time Spent with Patient: Total time spent is greater than 50% in coordination of care (as documented) at patient's floor/unit and/or counseling patient: [place] [address] IN/OBS CONSULT LVL 4,60M Patient Type New Diagnoses New onset of congestive heart failure I50.9 Hypertrophic cardiomyopathy I42.2 Permanent atrial fibrillation I48.21 Hypertension I10 Time Spent (min) 60
[2025-07-05] MEDS ORDERED: METOPROLOL SUCC 25MG EXT REL TAB PO SCH (09:00)
[2025-07-05] MEDS: GABAPENTIN 400 MG CAP PO SCH (09:10)
[2025-07-05] MEDS: guaiFENesin 600 MG TABCR PO SCH (09:11)
[2025-07-05] MEDS: LANTUS PER UNIT CHARGE SQ SCH (09:11)
[2025-07-05] MEDS: METOPROLOL SUCC 50MG EXT REL TAB PO SCH (09:12)
--- NOTE | 2025-07-05 12:07 | Electrocardiogram Report ---
Test Reason : Blood Pressure : */* mmHG Vent. Rate : 132 BPM Atrial Rate : * BPM P-R Int : * ms QRS Dur : 74 ms QT Int : 318 ms P-R-T Axes : * 46 204 degrees QTcB Int : 471 ms Atrial fibrillation with rapid ventricular response Nonspecific T wave abnormality Abnormal ECG When compared with ECG of 18-Mar-2023 03:41, No significant change was found Confirmed by Linda Harrell (Jim) on 07/05/2025 12:07:28 PM Referred By: REFERRED SELF Confirmed By: Linda Harrell
--- NOTE | 2025-07-05 14:58 | Hospitalist Progress Note ---
Date of Service July 05, 2025 Assessment & Plan (1) CHF (congestive heart failure): Plan: Acute on chronic HFpEF Apical variant hypertrophic cardiomyopathy diagnosed in 2015 Valvular heart disease --CXR:Cardiomegaly and mild pulmonary vascular congestion. -- BNP 207 --ECHO pending Monitor volume status, I's and O's, daily weight Continue IV Lasix per cardiology Appreciate neurology input Continue lisinopril, metoprolol A-fib RVR Subtherapeutic INR Normal TSH Continue metoprolol succinate 100 mg twice a day Consideration for Cardizem drip per cardiology Monitor and replete electrolytes as needed Appreciate cardiology help Continue Coumadin for anticoagulation Monitor INR:1.8 today Hypertensive urgency Blood pressure better today Continue metoprolol, lisinopril Monitor BP, adjust medications as needed Hyperlipidemia Statin noncompliant as per records DM II on Trulicity Last HbA1c 6.6 Continue insulin per protocol Monitor blood glucose levels Pulmonary nodule Incidental finding on CT --CT Chest:No evidence of pulmonary embolism. Few atelectatic bands are noted involving bilateral lung bases. Tiny nodule of size 6 mm is noted involving right lower lobe - appears lung RADS category 2 /benign. --Follow-up as outpatient Obesity BMI 35 Lifestyle modifications DVT Px: Coumadin Code Status Full code Admission and Anticipated Discharge Date Admission Date: July 05, 2025 Subjective Patient is seen and examined at bedside Cough, dyspnea much improved Remains tachycardic on monitor Denies any chest pain, palpitations, dizziness, nausea, vomiting, abdominal pain No other complaints Review of Systems Review of Systems: All systems reviewed & are unremarkable except as noted in Subjective Physical Exam Physical Exam: Physical Exam: Vitals signs as noted above General Appearance:Obese, no apparent distress Head: normocephalic, Atraumatic Eyes: normal inspection, EOMI Neck: supple, Trachea midline Respiratory/Chest: Normal breath sounds, CTA, No accessory muscle use Cardiovascular: Irregularly irregular, tachycardia, No murmur Abdomen/GI:Soft, Non tender, Bowel sounds present Extremities/Musculoskeletal:normal inspection, Trace edema Neurologic/Psych:AAOX3, grossly no focal neurological deficits Skin: normal color, warm Results & Data Results & Data Vital Signs (Past 12 Hours) Vital Signs Pulse Pulse Resp BP BP Pulse Ox Pulse Ox 07/05/25 14:08 118 H 16 152/75 H 95 07/05/25 12:03 113 H 21 95 07/05/25 11:09 112 H 15 94 07/05/25 10:06 122 H 28 H 95 07/05/25 10:00 139/110 H 07/05/25 09:54 100 H 19 94 07/05/25 09:15 113 H 17 96 07/05/25 09:09 98 H 16 137/84 98 07/05/25 08:38 115 H 07/05/25 08:18 114 H 18 94 07/05/25 08:00 98 07/05/25 06:33 107 H 147/96 H 07/05/25 05:18 109 H 149/96 H 07/05/25 03:03 108 H 17 92 O2 Del Method O2 Del Method 07/05/25 14:08 Room Air 07/05/25 12:03 Room Air 07/05/25 11:09 Room Air 07/05/25 10:06 Room Air 07/05/25 10:00 07/05/25 09:54 Room Air 07/05/25 09:15 Room Air 07/05/25 09:09 Room Air 07/05/25 08:38 07/05/25 08:18 Room Air 07/05/25 08:00 Room Air 07/05/25 06:33 07/05/25 05:18 07/05/25 03:03 Laboratory Results Short CBC 07/04/25 07/05/25 Range/Units 22:30 04:50 WBC 7.61 5.24 (4.8-10.8) K/ul Hgb 16.0 15.4 (14.0-18.0) g/dl Hct 45.1 43.3 (42.0-52.0) % Plt Count 180 179 (130-400) K/uL BMP 07/04/25 07/05/25 22:30 04:50 Sodium 142 140 Potassium 3.8 4.0 Chloride 103 102 Carbon Dioxide 30 28 BUN 15 17 Creatinine 1.23 1.19 Glucose 153 H 178 H Calcium 9.7 9.8 Liver Function 07/04/25 Range/Units 22:30 Total Bilirubin 0.8 (0.2-1.0) mg/dl AST 22 (13-39) U/L ALT 21 (7-52) U/L Alkaline Phosphatase 63 (34-104) U/L Albumin 5.0 (3.4-5.0) gm/dl Urine 07/05/25 Range/Units 00:57 Urine Color Yellow Urine Appearance Clear (Clear) Urine pH 7.0 (4.5-7.5) Ur Specific [place] 1.028 (1.000-1.030) Urine Protein 2+ H (Negative) Urine Glucose (UA) Negative (Negative)
[2025-07-05] MEDS: WARFARIN SOD 6 MG TAB PO SCH (16:09)
--- NOTE | 2025-07-06 08:19 | Cardiology Progress Note ---
Date of Service July 06, 2025 Assessment & Plan (1) New onset of congestive heart failure: (2) Hypertrophic cardiomyopathy: (3) Permanent atrial fibrillation: (4) Hypertension: Plan 70 year old male who presented to [facility] ED on 07/05/25 for evaluation of worsening shortness of breath over the past couple of days with associated heart racing and lightheadedness. Seen by cardiology today for evaluation of new onset heart failure excerbation. Found to be in AFIB with RVR with heart rates in 140-150s upon admission. CXR upon admission demonstrated cardiomegaly and mild pulmonary vascular congestion. Received IV Cardizem and Lasix in ED. 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 1. Permanent AFIB (diagnosed 06/08/21; on warfarin), [id number] score 3 (age, HTN, CHF) -AFIB with elevated ventricular rates in 100-110s with intermittent rates in 120-130s upon telemetry review -Increased to metoprolol succinate ER 125 mg in the morning and 100 mg in the evening for rate control -Continue warfarin for anticoagulation with INR goal between 2 to 3 2. Apical varient hypertrophic cardiomyopathy (diagnosed 2014) 3. Acute on chronic HFpEF, NYHA Class III -Respiratory status improving with IV diuresis and remains on room air -Good response to IV diuresis with weight down 2.7 kg -I&Os likely inaccurate -Kidney function and electrolytes remain stable on AM labs -Switch from IV diuresis to PO Lasix 40 mg daily upon discharge home -Reinforced CHF education 3. Hypertension -Blood pressure remains borderline low -Reduced lisinopril dose to 5 mg daily Case discussed and coordinated with Dr. Rees. Please see Dr. Rees notes for further recommendations. I spent a total of 30 minutes coordinating, documenting, and providing care for this patient excluding time spent in the performance of separately billed services or time spent by another provider/QHP. RADHA Alfred Department of Cardiology Admission and Anticipated Discharge Date Admission Date: July 05, 2025 Supervising Physician Co-Signing Physician Notes I spent a total of 30 minutes on the date of service in preparation, delivery, and documentation of the care provided to this patient, excluding any time spent in the performance of separately billed services. I have personally performed a history and physical examination on the patient. I have reviewed the advance practitioner's documentation, and I agree with, and take responsibility for the plan of care. Subjective Seen by cardiology today for examination and follow-up. Laying comfortably in bed on room air. Feeling well and symptoms improved with IV diuresis. Still has mild chest congestion and sometimes hears "rattling" when he breathes. Denies orthopnea or PND. Ambulating in hallways with no dyspnea on exertion or exertional chest discomfort. Denies tachy palpitations, lightheadedness, syncope, or worsening edema. Chart, medications, and telemetry personally reviewed. Review of Systems Review of Systems: See HPI for pertinent positives. All others negative other than those noted in the HPI. CONSTITUTIONAL: No change in weight, No weakness, No fatigue, No fevers, No sweats or chills. HEENT: No visual changes, No epistaxis, No bleeding gums, No dysphagia, PULMONARY: +non-productive cough. No sputum, or hemoptysis, No wheezing, and No recent change in breathing. CARDIOVASCULAR: No chest pain, No edema, No dyspnea on exertion, No palpitations, No syncope, No claudication, No calf pain. GASTROINTESTINAL: No change in appetite, No abdominal pain, No change in bowel habits, No significant heartburn, No nausea, No vomiting, No diarrhea, No constipation, No blood in stools or black tarry stools, No dysphagia. HEMATOLOGIC: No abnormal bleeding and No bruising. NEUROLOGICAL: No falls, Normal balance, No headaches, and No weakness. PSYCH: No sleep disturbances, No mood changes. Physical Exam Physical Exam: Vital signs within normal limits as above. General: Well developed and nourished. No acute distress. A+Ox3. HEENT: Normocephalic. Atraumatic. EOMI. Conjunctiva and sclera clear. NECK: Trachea midline. No thyromegaly. No carotid bruits. No JVD. Carotid upstrokes are brisk. Heart: Tachycardic. Irregularly irregular rhythm. S1 and S2 noted. No murmur. No rubs or gallops. PMI non displaced. Lungs: Diminished breath sounds throughout posterior lobes. No wheezes.No rhonchi. No rales. Abdomen: Protuberant. Normal bowel sounds. Soft. Nontender. No abdominal bruits. Extremities: No edema. Normal capillary refill. No clubbing or cyanosis. Pulses: radial=2/4, dorsal pedis=2/4. Skin: Warm and dry. NEURO: No focal deficits. PSYCH: Appropriate affect and insight. Results & Data Vital Signs (Past 12 Hours) Vital Signs Temp Pulse Pulse Resp BP Pulse Ox O2 Del Method 07/06/25 07:17 36.8 C 101 H 18 104/72 92 Room Air 07/06/25 05:14 110 H 07/06/25 04:22 36.6 C 117 H 19 116/72 94 Room Air 07/05/25 23:55 36.6 C 97 H 18 136/80 91 Room Air 07/05/25 21:52 102 H 07/05/25 20:50 Room Air Laboratory Results Intake and Output 07/05/25 07/06/25 07/06/25 22:59 06:59 14:59 Output Total 900 / 900 Balance -900 / -420 Output: Urine 900 / 900 Other: Weight 101.9 kg Weight Measurement Method Built in [facility] Diagnostic Findings ECHO 07/05/25 Left ventricular ejection fraction = 55 to 60% Asymmetric left ventricular hypertrophy involving the ventricular apex with a small apical aneurysm Findings suggestive of apical hypertrophic cardiomyopathy The left ventricular cavity size is normal The right ventricular systolic function is normal There is mild mitral regurgitation There is mild tricuspid regurgitation PG Care Time/CCT Total # of Minutes Spent Total Time Spent with Patient: Total time spent is greater than 50% in coordination of care (as documented) at patient's floor/unit and/or counseling patient: Coding [place] [address] SUB INP/OBS CARE 3/50MIN Patient Type Established Diagnoses New onset of congestive heart failure I50.9 Hypertrophic cardiomyopathy I42.2 Permanent atrial fibrillation I48.21 Hypertension I10 Time Spent (min) 50
[2025-07-06 08:25] LABS: Hematocrit (blood only) 43.5 % (42.0-52.0); Hemoglobin 15.2 g/dl (14.0-18.0); Mean Corpuscular Hemoglobin 33.3 pg (25.0-34.0); Mean Corpuscular Volume 95.2 fL (80.0-100.0); Platelet Count 199 K/uL (130-400); RDW Standard Deviation 43.9 fL (36.4-46.3); Red Blood Count 4.57 M/uL (4.70-6.10); White Blood Count 12.13 K/ul (4.8-10.8)
[2025-07-06 08:53] LABS: Anion Gap 10.0 (3-11); Blood Urea Nitrogen 31.0 mg/dl (6-23); Calcium 9.6 mg/dl (8.6-10.3); Carbon Dioxide 28.0 mmol/L (21-32); Chloride 101.0 mmol/L (98-107); Creatinine Clr Calc Pharmacy 54.4 ml/min; Glucose 119.0 mg/dl (70-99(Fasting)); Magnesium 2.1 mg/dl (1.7-2.4); Potassium 4.1 mmol/L (3.5-5.1); Sodium 139.0 mmol/L (136-145)
[2025-07-06 09:00] LABS: INR 1.6 (0.9-1.1); Prothrombin Time 17.0 Seconds (9.0-12.0)
[2025-07-06] MEDS: ADVANCED PROBIOTIC 625 MG CAPSULE PO SCH (10:53)
[2025-07-06] MEDS: DOXYCYCLINE HYCLATE 100 MG CAP PO SCH (10:53)
[2025-07-06] MEDS: METOPROLOL SUCC 25MG EXT REL TAB PO SCH (12:22)
--- NOTE | 2025-07-06 14:56 | Hospitalist Progress Note ---
Date of Service July 06, 2025 Assessment & Plan (1) CHF (congestive heart failure): Plan: Acute on chronic HFpEF Apical variant hypertrophic cardiomyopathy diagnosed in 2015 Valvular heart disease --CXR:Cardiomegaly and mild pulmonary vascular congestion. -- BNP 207 --ECHO: EF 55 to 60%. 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 Findings suggestive of apical hypertrophic cardiomyopathy. Right ventricle cavity size is normal, right ventricular systolic pressure is normal. Mild mitral and tricuspid regurgitation. --Monitor volume status, I's and O's, daily weight Continue IV Lasix per cardiology Appreciate neurology input Continue lisinopril, metoprolol Lisinopril dose decreased to 5 mg daily Plan to discharge on Lasix 40 mg daily per cardiology A-fib RVR Subtherapeutic INR Normal TSH Increase metoprolol succinate to 125 mg QAM, 100 mg QPM Monitor and replete electrolytes as needed Appreciate cardiology help Continue Coumadin for anticoagulation Monitor INR:1.6 today We will give 7.5 mg Coumadin today Hypertensive urgency Blood pressure better Continue metoprolol, lisinopril Monitor Hyperlipidemia Statin noncompliant as per records DM II on Trulicity Last HbA1c 6.6 Continue insulin per protocol Monitor blood glucose levels Pulmonary nodule Incidental finding on CT --CT Chest:No evidence of pulmonary embolism. Few atelectatic bands are noted involving bilateral lung bases. Tiny nodule of size 6 mm is noted involving right lower lobe - appears lung RADS category 2 /benign. --Follow-up as outpatient Obesity BMI 35 Lifestyle modifications DVT Px: Coumadin Code Status Full code Admission and Anticipated Discharge Date Admission Date: July 05, 2025 Subjective Patient is seen and examined at bedside Still has minimal cough with clear expectoration Denies any significant dyspnea today Heart rate is controlled on monitor Eager to get discharged Denies any chest pain, palpitations, dizziness, nausea, vomiting, abdominal pain Review of Systems Review of Systems: All systems reviewed & are unremarkable except as noted in Subjective Physical Exam Physical Exam: Physical Exam: Vitals signs as noted above General Appearance:Obese, no apparent distress Head: normocephalic, Atraumatic Eyes: normal inspection, EOMI Neck: supple, Trachea midline Respiratory/Chest: Normal breath sounds, CTA, No accessory muscle use Cardiovascular: Irregularly irregular, tachycardia, No murmur Abdomen/GI:Soft, Non tender, Bowel sounds present Extremities/Musculoskeletal:normal inspection, Trace edema Neurologic/Psych:AAOX3, grossly no focal neurological deficits Skin: normal color, warm Results & Data Results & Data Vital Signs (Past 12 Hours) Vital Signs Temp Pulse Pulse Resp BP Pulse Ox O2 Del Method 07/06/25 11:12 36.6 C 82 19 120/78 93 Room Air 07/06/25 07:17 36.8 C 101 H 18 104/72 92 Room Air 07/06/25 05:14 110 H 07/06/25 04:22 36.6 C 117 H 19 116/72 94 Room Air Laboratory Results Short CBC 07/06/25 Range/Units 07:27 WBC 12.13 H (4.8-10.8) K/ul Hgb 15.2 (14.0-18.0) g/dl Hct 43.5 (42.0-52.0) % Plt Count 199 (130-400) K/uL BMP 07/06/25 07:27 Sodium 139 Potassium 4.1 Chloride 101 Carbon Dioxide 28 BUN 31 H Creatinine 1.42 H Glucose 119 H Calcium 9.6
[2025-07-06] MEDS: WARFARIN SOD 7.5 MG TAB PO SCH (16:06)
[2025-07-06 16:32] VITALS: RESP 18
[2025-07-07 06:43] LABS: Hematocrit (blood only) 43.3 % (42.0-52.0); Hemoglobin 15.1 g/dl (14.0-18.0); Mean Corpuscular Hemoglobin 34.0 pg (25.0-34.0); Mean Corpuscular Volume 97.5 fL (80.0-100.0); Platelet Count 161 K/uL (130-400); RDW Standard Deviation 45.1 fL (36.4-46.3); Red Blood Count 4.44 M/uL (4.70-6.10); White Blood Count 8.15 K/ul (4.8-10.8)
[2025-07-07 07:02] LABS: Anion Gap 6.0 (3-11); Blood Urea Nitrogen 31.0 mg/dl (6-23); Calcium 9.0 mg/dl (8.6-10.3); Carbon Dioxide 30.0 mmol/L (21-32); Chloride 103.0 mmol/L (98-107); Creatinine Clr Calc Pharmacy 46.8 ml/min; Glucose 108.0 mg/dl (70-99(Fasting)); Magnesium 2.0 mg/dl (1.7-2.4); Potassium 4.5 mmol/L (3.5-5.1); Sodium 139.0 mmol/L (136-145)
[2025-07-07 07:18] LABS: INR 2.2 (0.9-1.1); Prothrombin Time 22.0 Seconds (9.0-12.0)
--- NOTE | 2025-07-07 10:52 | Cardiology Progress Note ---
Date of Service July 07, 2025 Assessment & Plan (1) New onset of congestive heart failure: (2) Hypertrophic cardiomyopathy: (3) Permanent atrial fibrillation: (4) Hypertension: Plan 70 year old male who presented to [facility] ED on 07/05/25 for evaluation of worsening shortness of breath over the past couple of days with associated heart racing and lightheadedness. Seen by cardiology for evaluation of new onset heart failure exacerbation. Found to be in atrial fibrillation with RVR with heart rates in 140-150s upon admission. CXR upon admission demonstrated cardiomegaly and mild pulmonary vascular congestion. Received IV Cardizem and Lasix in ED. 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 07/07/25 Pt is up and ambulating in room independently. A-fib controlled on monitor both overnight and currently in 90's. Lungs clear to auscultation on room air with no edema present. -A-fib controlled in 90's currently even with ambulation -Continue metoprolol -INR 2.2 continue Warfarin -Continue GDMT for HFpEF with Trulicity, Lisinopril, ? addition of Aldactone and Lasix. BP 118/71 -Weight 99.3 down from 101.9 -Negative 1090ml last 24 hours -Creatinine 1.63 today. -K 4.5 -Monitor Electrolytes and kidney function closely. -Educate pt on low sodium diet and fluid intake. I spent a total of 30 minutes on the date of service in preparation, delivery, and documentation of the care provided to this patient, excluding any time spent in the performance of separately billed services. Antonino GARCIA Department of Cardiology, [facility] This chart was completed in part utilizing Speech Voice Recognition Software. Grammatical errors, random word insertions, pronoun errors, and incomplete sentences are an occasional consequence of this system due to software limitations, ambient noise, and hardware issues. Any formal questions or concerns about the content, text, or information contained within the body of this dictation should be directly addressed to the provider for clarification. Admission and Anticipated Discharge Date Admission Date: July 05, 2025 Supervising Physician Co-Signing Physician Notes Attending attestation: Case reviewed with the advanced practitioner. I have personally performed a history and physical examination on the patient. I have reviewed the advanced practitioner's documentation on the date of service referenced in note, and I agree with, and take responsibility for the plan of care. Subjective: Patient describes feeling well. Shortness of breath/chest tightness noted on presentation has resolved. 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 * Outpatient cardiac MRI for further assessment of LV apical aneurysm as this may change the approach for restratification with regards to AICD candidacy. Patient agreeable. I spent a total of 30 minutes coordinating, documenting, and providing care for this patient excluding time spent in the performance of separately billed services or time spent by another provider. Kleber Espinosa, DO Subjective Pt states he is doing well. Denies any lightheadedness, dizziness, sob. cp, or palpitations today. States he feels better and is looking forward to being D/C'd. Pt is up in room and ambulating back and forth to bathroom without symptoms or issues. Review of Systems Review of Systems: All systems reviewed & are unremarkable except as noted in HPI & below Respiratory: Denies JIN, or sob Cardiovascular: Additional Comments: Denies any cp or palpitations Physical Exam Constitutional: WD/WN, vitals as above well developed and + overweight Eyes: PERRL and normal accommodation Neck: trachea midline, no thyromegaly Respiratory: normal respiratory effort, lungs clear to auscultation Cardiovascular: RRR, no murmur, no edema Rate/Rhythm: regular rate No signs of edema present. Gastrointestinal (Abdomen): normal bowel sounds, soft, nontender, no hepatosplenomegaly Musculoskeletal: no cyanosis or clubbing, extremities motor strength 5/5 Skin: no rashes, warm and dry Neurologic: PERRL, EOMI, accommodation nl, no face palsy, no dysarthria Psychiatric: A+Ox3, euthymic affect Results & Data Vital Signs (Past 12 Hours) Vital Signs Temp Pulse Resp BP Pulse Ox O2 Del Method 07/07/25 07:12 36.5 C 96 H 18 118/71 96 Room Air 07/07/25 04:29 36.8 C 96 H 18 118/86 92 Room Air 07/06/25 23:36 36.7 C 86 18 118/77 94 Room Air Laboratory Results Coagulation 07/07/25 Range/Units 06:19 PT 22.0 H (9.0-12.0) Seconds CBC 07/07/25 Range/Units 06:19 WBC 8.15 (4.8-10.8) K/ul RBC 4.44 L (4.70-6.10) M/uL Hgb 15.1 (14.0-18.0) g/dl Hct 43.3 (42.0-52.0) % Plt Count 161 (130-400) K/uL Comprehensive Metabolic Panel 07/07/25 Range/Units 06:19 Sodium 139 (136-145) mmol/L Potassium 4.5 (3.5-5.1) mmol/L Chloride 103 (98-107) mmol/L Carbon Dioxide 30 (21-32) mmol/L BUN 31 H (6-23) mg/dl Creatinine 1.63 H (0.6-1.4) mg/dl Glucose 108 H (70-99(Fasting)) mg/dl Calcium 9.0 (8.6-10.3) mg/dl Intake and Output 07/06/25 07/07/25 07/07/25 22:59 06:59 14:59 Output Total 1850 850 / 1851 Balance -1 / -1071 -850 / -1071 Output: Urine 850 / 1850 # Bowel Movements Other: # Unmeasured Voids 2 Weight 99.3 kg Weight Measurement Method Standing Scale Medications Administered Current Inpatient Medications Acetaminophen (Acetaminophen 325 Mg Tab) 650 mg PO QID PRN PRN Reason: pain/fever Stop: 08/04/25 02:04 Dextrose (Dextrose 50% 50 Ml Syringe) 25 - 50 ml IV UD PRN; Protocol PRN Reason: Hypoglycemia Protocol Stop: 08/04/25 01:50 Doxycycline Hyclate (Doxycycline Hyclate 100 Mg Cap) 100 mg PO BID KRAI Stop: 07/11/25 10:29 Last Admin: 07/07/25 08:35 Dose: 100 mg Gabapentin (Gabapentin 400 Mg Cap) 400 mg PO TID KARI Stop: 08/04/25 08:59 Last Admin: 07/07/25 08:34 Dose: 400 mg Glucagon (Glucagon For Inj 1 Mg Vial) 1 mg SQ UD PRN; Protocol PRN Reason: Hypoglycemia Protocol Stop: 08/04/25 01:50 Glucose (Glucose 40% Gel 15 Gm Tube) 15 - 30 gm PO UD PRN; Protocol PRN Reason: Hypoglycemia Protocol Stop: 08/04/25 01:50 Glucose (Glucose 10 Tab/Tube) 4 - 8 tab PO UD PRN; Protocol PRN Reason: Hypoglycemia Protocol Stop: 08/04/25 01:50 Guaifenesin (Guaifenesin 600 Mg Tabcr) 600 mg PO Q12 KARI Stop: 08/04/25 08:59 Last Admin: 07/07/25 08:34 Dose: 600 mg Promethazine HCl (Phenergan) 6.25 mg in 50.25 mls @ 201 mls/hr IV Q6H PRN PRN Reason: Nausea And Vomiting Stop: 08/04/25 02:04 Insulin Aspart (Insulin Aspart Per Unit Charge) 0 units SC ACHS KARI Stop: 08/04/25 01:50 Last Admin: 07/07/25 08:30 Dose: 2 units Insulin Glargine (Lantus Per Unit Charge) 5 units SQ DAILY KARI Stop: 08/04/25 08:59 Last Admin: 07/07/25 08:31 Dose: 5 units Lactobacillus Acidophilus (Advanced Probiotic 625 Mg Capsule) 1,250 mg PO DAILY [facility] Stop: 08/05/25 10:19 Last Admin: 07/07/25 08:34 Dose: 1,250 mg Lisinopril (Lisinopril 5 Mg Tab) 5 mg PO QAM KARI Stop: 08/06/25 08:59 Last Admin: 07/07/25 08:35 Dose: 5 mg Metoprolol Succinate (Metoprolol Succ 50mg Ext Rel Tab) 100 mg PO BID KARI Stop: 08/04/25 08:59 Last Admin: 07/07/25 08:39 Dose: 100 mg Metoprolol Succinate (Metoprolol Succ 25mg Ext Rel Tab) 25 mg PO QAM [facility] Stop: 08/05/25 11:59 Last Admin: 07/07/25 08:34 Dose: 25 mg Miscellaneous (Carbohydrates For Hypoglycemia ) 15 - 30 gm PO UD PRN PRN Reason: Hypoglycemia Protocol Stop: 08/04/25 01:50 Oxycodone HCl (Oxycodone Hcl Ir 5 Mg Tab (Immediate Release)) 5 mg PO Q4H PRN PRN Reason: Pain Stop: 07/19/25 02:04 Polyethylene Glycol (Polyethylene (Miralax) 17 Gm Pack) 17 gm PO DAILY PRN PRN Reason: Constipation Stop: 08/04/25 02:03 Warfarin Sodium (Warfarin Sod 5 Mg Tab) 5 mg PO DAILY@1600 KARI Stop: 08/06/25 15:59 PG Care Time/CCT Prolonged Care Time 30 Coding Level of Care Code 38296 SUB INP/OBS CARE 3/50MIN History Detailed Exam Detailed Medical Decision Making High Complexity Diagnoses New onset of congestive heart failure I50.9 Hypertrophic cardiomyopathy I42.2 Permanent atrial fibrillation I48.21 Hypertension I10 Time Spent (min) 60 Comment 30 minutes spent by RADHA Sifuentes, [address] Espinosa
[2025-07-07 15:40] VITALS: BP 130/92; PULSE 86; TEMP 98.1; O2SAT 97
--- NOTE | 2025-07-07 16:30 | Hospitalist Progress Note ---
Date of Service July 07, 2025 Assessment & Plan (1) CHF (congestive heart failure): Plan: Acute on chronic HFpEF Apical variant hypertrophic cardiomyopathy diagnosed in 2015 Valvular heart disease --CXR:Cardiomegaly and mild pulmonary vascular congestion. -- BNP 207 --ECHO: EF 55 to 60%. 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 Findings suggestive of apical hypertrophic cardiomyopathy. Right ventricle cavity size is normal, right ventricular systolic pressure is normal. Mild mitral and tricuspid regurgitation. --Monitor volume status, I's and O's, daily weight Received IV Lasix while hospitalized Appreciate neurology input Continue lisinopril, metoprolol Lisinopril dose decreased to 5 mg daily Metoprolol succinate dose increased to 100 mg twice a day Cardiology recommends outpatient cardiac MRI to determine mine eligibility for AICD placement Needs follow-up with cardiology on discharge A-fib RVR Subtherapeutic INR --resolved Normal TSH Increase metoprolol succinate to 125 mg QAM, 100 mg QPM Monitor and replete electrolytes as needed Appreciate cardiology help Continue Coumadin for anticoagulation Monitor INR:2.2today Hypertensive urgency Continue metoprolol, lisinopril Blood pressure stable Monitor Hyperlipidemia Statin noncompliant as per records DM II on Trulicity Last HbA1c 6.6 Continue insulin per protocol Monitor blood glucose levels Pulmonary nodule Incidental finding on CT --CT Chest:No evidence of pulmonary embolism. Few atelectatic bands are noted involving bilateral lung bases. Tiny nodule of size 6 mm is noted involving right lower lobe - appears lung RADS category 2 /benign. --Follow-up as outpatient Obesity BMI 35 Lifestyle modifications DVT Px: Coumadin Code Status Full code Disposition Home Admission and Anticipated Discharge Date Admission Date: July 05, 2025 Subjective Patient is seen and examined at bedside Offers no new complaints Eager to get discharged Denies any chest pain, palpitations, dizziness, nausea, vomiting, abdominal pain Plan to discharge home today Discussed with cardiology Review of Systems Review of Systems: All systems reviewed & are unremarkable except as noted in Subjective Physical Exam Physical Exam: Physical Exam: Vitals signs as noted above General Appearance:Obese, no apparent distress Head: normocephalic, Atraumatic Eyes: normal inspection, EOMI Neck: supple, Trachea midline Respiratory/Chest: Normal breath sounds, CTA, No accessory muscle use Cardiovascular: Irregularly irregular, tachycardia, No murmur Abdomen/GI:Soft, Non tender, Bowel sounds present Extremities/Musculoskeletal:normal inspection, Trace edema Neurologic/Psych:AAOX3, grossly no focal neurological deficits Skin: normal color, warm Results & Data Results & Data Vital Signs (Past 12 Hours) Vital Signs Temp Pulse Pulse Resp BP Pulse Ox O2 Del Method 07/07/25 15:39 36.7 C 86 18 130/92 97 Room Air 07/07/25 12:58 100 H 07/07/25 12:02 36.8 C 87 18 118/85 94 Room Air 07/07/25 07:12 36.5 C 96 H 18 118/71 96 Room Air 07/07/25 05:54 91 H 07/07/25 04:29 36.8 C 96 H 18 118/86 92 Room Air Laboratory Results Short CBC 07/07/25 Range/Units 06:19 WBC 8.15 (4.8-10.8) K/ul Hgb 15.1 (14.0-18.0) g/dl Hct 43.3 (42.0-52.0) % Plt Count 161 (130-400) K/uL BMP 07/07/25 06:19 Sodium 139 Potassium 4.5 Chloride 103 Carbon Dioxide 30 BUN 31 H Creatinine 1.63 H Glucose 108 H Calcium 9.0
--- NOTE | 2025-07-07 16:38 | Discharge Summary ---
Date of Service July 07, 2025 Admission HPI Per Admitting Provider History obtained from patient and records. Medical history significant for diastolic dysfunction (EF 65 to 69%, TTE 2023), A-fib on Coumadin, LVH with apical variant HOCM, valvular heart disease (mild MR/TR), hypertension, hyperlipidemia, DM 2 on Trulicity Last confinement 2011 for syncope resulting in nasal bone fracture. Patient noted cough symptoms productive of clear sputum at home yesterday. SOB without chest pain. No fever, no chills. Not sure about sick contacts. Home COVID-19 test was negative. Worsening SOB with palpitations. Patient unaware of weight gain. Compliant with home meds. Patient noted to be in rapid A-fib upon arrival at the ER. Highest heart rate of 140s. IV Cardizem and Lasix administered at the ER. Medical History as above Surgical History : Tonsillectomy/adenoidectomy Family History : Kidney disease, stroke, DM Personal/Social history : Non-smoker, occasional EtOH intake, retired school apprentice electrician Admission Exam Per Admitting Provider GENERAL: Comfortable, pleasant, obese, no respiratory distress SKIN: Normal color, warm HEENT: [place] palpebral conjunctivae, no ptosis, dry buccal mucosa NECK : Supple, short neck, no tenderness CHEST : CTA, no tenderness HEART : Irregular, no obvious murmurs ABDOMEN: Some distention, nontender EXTREMITIES : No LE swelling/tenderness, palpable pulses, no other conspicuous deformities noted NEUROLOGIC : Coherent, no facial asymmetry, no other gross focality Principal Diagnosis Acute on chronic heart failure with preserved EF Atrial fibrillation with rapid ventricular response Hypertension Pulmonary nodule Discharge Data Allergies Allergy/AdvReac Type Severity Reaction Status Date / Time Latex, Natural Rubber Allergy Intermediate Rash Verified 07/04/25 23:28 Consultations 07/05/25 01:07 ED Decision to Admit Stat 07/05/25 01:51 Consult Cardiology Routine Procedures Performed Laboratory Results WBC 8.15 K/ul (4.8-10.8) 07/07/25 06:19 RBC 4.44 M/uL (4.70-6.10) L 07/07/25 06:19 Hgb 15.1 g/dl (14.0-18.0) 07/07/25 06:19 Hct 43.3 % (42.0-52.0) 07/07/25 06:19 MCV 97.5 fL (80.0-100.0) 07/07/25 06:19 MCH 34.0 pg (25.0-34.0) 07/07/25 06:19 MCHC 34.9 g/dL (32.0-36.0) 07/07/25 06:19 RDW Std Deviation 45.1 fL (36.4-46.3) 07/07/25 06:19 RDW Coeff of Robi 12.5 % (11.5-14.5) 07/07/25 06:19 Plt Count 161 K/uL (130-400) 07/07/25 06:19 MPV 10.9 fL (9.4-12.4) 07/07/25 06:19 Immature Gran % (Auto) 0.4 % 07/05/25 04:50 Neut % (Auto) 91.7 % 07/05/25 04:50 Lymph % (Auto) 6.9 % 07/05/25 04:50 [place] % (Auto) 0.8 % 07/05/25 04:50 Eos % (Auto) 0.0 % 07/05/25 04:50 Baso % (Auto) 0.2 % 07/05/25 04:50 Neut # (Auto) 4.81 K/uL (1.40-6.50) 07/05/25 04:50 Lymph # (Auto) 0.36 K/uL (1.20-3.40) L 07/05/25 04:50 [place] # (Auto) 0.04 K/uL (0.11-0.59) L 07/05/25 04:50 Eos # (Auto) 0.00 K/uL (0.00-0.50) 07/05/25 04:50 Baso # (Auto) 0.01 K/uL (0.00-0.20) 07/05/25 04:50 Immature Gran # (Auto) 0.02 K/uL (0.01-0.20) 07/05/25 04:50 RBC Morphology Unremarkable 07/05/25 04:50 PT 22.0 Seconds (9.0-12.0) H 07/07/25 06:19 INR 2.2 (0.9-1.1) H 07/07/25 06:19 APTT 33 Seconds (21-31) H 07/04/25 22:30 PTT Ratio 1.2 07/04/25 22:30 VBG pH 7.42 (7.36-7.41) H 07/04/25 23:35 VBG pCO2 49 mmHg (38-50) 07/04/25 23:35 VBG pO2 41 mmHg 07/04/25 23:35 VBG HCO3 32 mmol/L 07/04/25 23:35 VBG O2 Saturation 71.6 % 07/04/25 23:35 VBG Base Excess 6.1 mEq/L 07/04/25 23:35 Barometric Pressure Cancelled 07/04/25 22:30 Sodium 139 mmol/L (136-145) 07/07/25 06:19 Potassium 4.5 mmol/L (3.5-5.1) 07/07/25 06:19 Chloride 103 mmol/L (98-107) 07/07/25 06:19 Carbon Dioxide 30 mmol/L (21-32) 07/07/25 06:19 Anion Gap 6 (3-11) 07/07/25 06:19 BUN 31 mg/dl (6-23) H 07/07/25 06:19 Creatinine 1.63 mg/dl (0.6-1.4) H 07/07/25 06:19 Est Cr Clr Drug Dosing 46.8 ml/min 07/07/25 06:19 eGFR 44.49 07/07/25 06:19 BUN/Creatinine Ratio 19.0 (10-20) 07/07/25 06:19 Glucose 108 mg/dl (70-99(Fasting)) H 07/07/25 06:19 POC Glucose 127 mg/dl (70-99) H 07/07/25 16:05 Calcium 9.0 mg/dl (8.6-10.3) 07/07/25 06:19 Magnesium 2.0 mg/dl (1.7-2.4) 07/07/25 06:19 Total Bilirubin 0.8 mg/dl (0.2-1.0) 07/04/25 22:30 AST 22 U/L (13-39) 07/04/25 22:30 ALT 21 U/L (7-52) 07/04/25 22:30 Alkaline Phosphatase 63 U/L (34-104) 07/04/25 22:30 Troponin I High Sens 8.1 pg/ml (0-20) 07/05/25 00:30 B-Natriuretic Peptide 207 pg/ml (0-100) H 07/04/25 22:30 Total Protein 8.1 gm/dl (6.0-8.3) 07/04/25 22:30 Albumin 5.0 gm/dl (3.4-5.0) 07/04/25 22:30 Globulin 3.1 gm/dl (2.5-4.0) 07/04/25 22:30 Albumin/Globulin Ratio 1.6 (0.9-2) 07/04/25 22:30 Procalcitonin 0.05 ng/ml (0-0.5) 07/07/25 06:19 TSH 0.428 uIu/ml (0.300-4.500) 07/05/25 04:50 Urine Color Yellow 07/05/25 00:57 Urine Appearance Clear (Clear) 07/05/25 00:57 Urine pH 7.0 (4.5-7.5) 07/05/25 00:57 Ur Specific [place] 1.028 (1.000-1.030) 07/05/25 00:57 Urine Protein 2+ (Negative) H 07/05/25 00:57 Urine Glucose (UA) Negative (Negative) 07/05/25 00:57 Urine Ketones Negative (Negative) 07/05/25 00:57 Urine Blood Negative (Negative) 07/05/25 00:57 Urine Nitrite Negative (Negative) 07/05/25 00:57 Urine Bilirubin Negative (Negative) 07/05/25 00:57 Urine Urobilinogen Negative (Negative) 07/05/25 00:57 Ur Leukocyte Esterase Negative (Negative) 07/05/25 00:57 Urine WBC (Auto) 0-5 /hpf (0-5) 07/05/25 00:57 Urine RBC (Auto) 0-2 /hpf (0-2) 07/05/25 00:57 U Hyaline Cast (Auto) 0-2 /lpf (0-2) 07/05/25 00:57 U Epithel Cells (Auto) 0-2 /hpf (0-2) 07/05/25 00:57 Urine Bacteria (Auto) None Seen (None Seen) 07/05/25 00:57 Urine Comment 07/05/25 00:57 Adenovirus (PCR) Not Detected (NotDetected) 07/05/25 02:43 B. pertussis DNA (PCR) Not Detected (NotDetected) 07/05/25 02:43 B.parapertussis DNA PCR Not Detected (NotDetected) 07/05/25 02:43 C. pneumoniae DNA (PCR) Not Detected (NotDetected) 07/05/25 02:43 Coronavirus OC43 (PCR) Not Detected (NotDetected) 07/05/25 02:43 Coronavirus HKU1 (PCR) Not Detected (NotDetected) 07/05/25 02:43 Coronavirus 229E (PCR) Not Detected (NotDetected) 07/05/25 02:43 SARS-CoV-2 (PCR) Not Detected (NotDetected) 07/05/25 02:43 Coronavirus NL63 (PCR) Not Detected (NotDetected) 07/05/25 02:43 Human Metapneumovir PCR Not Detected (NotDetected) 07/05/25 02:43 Influenza Type A (PCR) Not Detected (NotDetected) 07/05/25 02:43 Influenza Type B (PCR) Not Detected (NotDetected) 07/05/25 02:43 M. pneumoniae (PCR) Not Detected (NotDetected) 07/05/25 02:43 Parainfluenza 1 (PCR) Not Detected (NotDetected) 07/05/25 02:43 Parainfluenza 2 (PCR) Not Detected (NotDetected) 07/05/25 02:43 Parainfluenza 3 (PCR) Not Detected (NotDetected) 07/05/25 02:43 Parainfluenza 4 (PCR) Not Detected (NotDetected) 07/05/25 02:43 RSV (PCR) Not Detected (NotDetected) 07/05/25 02:43 Entero/Rhino (PCR) Not Detected (NotDetected) 07/05/25 02:43 Impressions Chest X-Ray 07/04/25 22:24 Exam(s): XR CXR 1 VIEW EXAM: XR Chest, 1 View CLINICAL HISTORY: Reason for exam: Dyspnea. TECHNIQUE: Frontal view of the chest. COMPARISON: X-ray chest: 01/04/2023 FINDINGS: Lungs: Hyperinflated lungs. Bilateral bronchial wall and perihilar bronchovascular/interstitial thickening increased since comparison.. No consolidation. Pleural space: Unremarkable. No pneumothorax. Heart: There is cardiomegaly. Mediastinum: Persistently widened superior mediastinum. Bones/joints: Osteopenia. No acute fracture. IMPRESSION: Cardiomegaly and mild pulmonary vascular congestion. Recommend clinical correlation. . Electronically signed by: Amando Dia MD, DABR 07/05/25 00:25 AM Chest CTA 07/05/25 00:18 EXAM: CT angio chest PE protocol CLINICAL HISTORY: PE TECHNIQUE: Contiguous axial images were obtained from the neck base through the upper abdomen following intravenous administration of iodinated contrast material. Angiographic images were processed, 3D MIP images were acquired for interpretation. If IV contrast material had not been administered, the likelihood of detecting abnormalities relevant to the patient's condition would have been substantially decreased. Coronal and sagittal 3-D MIPs were likewise performed and indicated to increase the sensitivity of detectin diffuse clinically relevant pathology. CT scan was performed according to ALARA (as low as reasonable achievable). COMPARISON: None. FINDINGS: Few atelectatic bands are noted involving bilateral lung bases. Tiny nodule of size 6 mm is noted involving right lower lobe - appears lung RADS category 2 /benign. Adequate contrast bolus without evidence of pulmonary embolism. The central airways are patent. Rest of lungs are clear. No pleural effusion. The heart, aorta, and pulmonary arteries are of normal size and configuration. There are no appreciable coronary artery and aortic atherosclerotic calcifications. No pericardial effusion is identified. The thyroid is unremarkable. No mediastinal, hilar, or axillary lymphadenopathy is noted. No suspicious lytic or sclerotic osseous lesions are identified. IMPRESSION: No evidence of pulmonary embolism Few atelectatic bands are noted involving bilateral lung bases. Tiny nodule of size 6 mm is noted involving right lower lobe - appears lung RADS category 2 /benign. Electronically signed by Orestes Leblanc 07-05-2025 01:28 AM Ordered Studies 07/05/25 00:18 CT angio chest PE protocol Stat Hospital Course (1) CHF (congestive heart failure): Acute on chronic HFpEF Apical variant hypertrophic cardiomyopathy diagnosed in 2014 Valvular heart disease --CXR:Cardiomegaly and mild pulmonary vascular congestion. -- BNP 207 --ECHO: EF 55 to 60%. 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 Findings suggestive of apical hypertrophic cardiomyopathy. Right ventricle cavity size is normal, right ventricular systolic pressure is normal. Mild mitral and tricuspid regurgitation. --Monitor volume status, I's and O's, daily weight Received IV Lasix while hospitalized Appreciate neurology input Continue lisinopril, metoprolol Lisinopril dose decreased to 5 mg daily Metoprolol succinate dose increased to 100 mg twice a day Cardiology recommends outpatient cardiac MRI to determine mine eligibility for AICD placement Needs follow-up with cardiology on discharge A-fib RVR Subtherapeutic INR --resolved Normal TSH Increase metoprolol succinate to 125 mg QAM, 100 mg QPM Monitor and replete electrolytes as needed Appreciate cardiology help Continue Coumadin for anticoagulation Monitor INR:2.2today Hypertensive urgency Continue metoprolol, lisinopril Blood pressure stable Monitor Hyperlipidemia Statin noncompliant as per records DM II on Trity Last HbA1c 6.6 Continue insulin per protocol Monitor blood glucose levels Pulmonary nodule Incidental finding on CT --CT Chest:No evidence of pulmonary embolism. Few atelectatic bands are noted involving bilateral lung bases. Tiny nodule of size 6 mm is noted involving right lower lobe - appears lung RADS category 2 /benign. --Follow-up as outpatient Obesity BMI 35 Lifestyle modifications DVT Px: Coumadin Code Status Full code Disposition Home Total Time Total Time Spent Total Time Spent (In Minutes): 56 minutes Discharge Plan Discharge Items Patient Disposition: Home - Self-Care Reason For Visit: CHF Discharge Diagnosis: Acute on chronic heart failure with preserved EF Atrial fibrillation with rapid ventricular response Hypertension Pulmonary nodule Condition on Discharge: Good Activity: Resume your previous activity Exercise/Sports: Gradually increase as tolerated Non-emergency contact: Primary Care Provider and Cupola Worker Call non-emergency contact if: you have any medication questions, your symptoms worsen, your pain is concerning for you and you have a fever Follow-up/Referrals: Kevin Hawthorne MD [Primary Care Provider] - Diet: Carb Consistent or DM2 and Heart Healthy Addtl Attending Provider Instructions: --Follow-up with your primary care physician in 1 week --Follow-up with your sexer in 3 to 4 weeks as advised --Follow-up with Coumadin clinic for dosing your Coumadin and monitoring your PT/INR -- Your sexer recommends cardiac MRI as outpatient. Follow-up with your sexer as recommended. -- Check blood test(PT/INR) in 3 days and follow-up with Coumadin clinic for further instructions. --You are incidentally noted to have a pulmonary nodule on CT scan. Follow-up follow-up with your physician for possible repeat CT in 6 to 12 months. -- Monitor your blood pressure regularly as advised. Discuss with your primary care physician for further adjustment of medications as needed. -- Complete the antibiotic course doxycycline as prescribed. Seek immediate medical attention if your symptoms reoccur or worsen Please review medication list provided on discharge for any medication changes as instructed. Please call if you have any questions or problems. You can reach a [facility] hospitalist on duty at [facility] 24 hours a day by calling [phone] [facility] Mat Tester Provider Instructions: Call your Primary Care doctor if any of the following symptoms or problems start or get worse: * Shortness of breath or difficulty breathing * Wake up at night short of breath * Chest pain * Cough * Swelling of your hands, feet, or legs * More fatigued or tired with your normal activity * Palpitations - sudden fast heart beats WEIGHT * Weigh yourself every morning after using the bathroom. * Use the same scale. * Wear the same amount of clothing. * Write your weight down on a chart. * Call your Primary Care doctor if you gain more than 2-3 pounds in 1-2 days. MEDICATIONS * Use this discharge instruction sheet for medication instructions. * Take your medications at the time your doctor ordered. * Do not skip a dose of your medicines. * If you miss a dose of medicine, take it as soon as possible, but DO NOT DOUBLE A DOSE. * Read your medicine information when you get home. * Know all of the side effects of your medicine. If in doubt, ask your pharmacist * Call your Primary Care doctor's office if you have any side effects. * Be sure all of your doctors know what medicine and herbs you take (including cold, flu, and herbal medicine). Take the following with you to your follow-up doctor appointments: * Weight Chart * Medication List * List of questions Do not drink excessive alcohol, beer or wine. Pending Studies at Discharge: No Stand-Alone Forms: My [facility], Smoking Cessation Medications and DC Order Prescriptions: New doxycycline hyclate 100 mg Capsule 100 mg PO BID Qty: 10 0RF metoprolol succinate 100 mg tablet extended release 24 hr 100 mg PO BID Qty: 60 1RF Continued lisinopril 10 mg tablet 10 mg PO QAM warfarin 5 mg tablet 5 mg PO QPM gabapentin 400 mg capsule 400 mg PO TID polyethylene glycol 3350 [Miralax] 17 gram/dose Powder 17 g PO DAILY PRN (Reason: Constipation) Trulicity 3 mg/0.5 mL pen injector 3 mg SUBCUT WK Rx Instructions: WEDNESDAYS Discontinued metoprolol succinate 25 mg tablet extended release 24 hr 50 mg PO BID Discharge Orders: Discharge Order (Routine); Ordered 07/07/25 Ordered By: Isreal Ayala Admission Data Admit Date/Time: 07/05/25 01:13 Attending Provider: Isreal Ayala Admit Provider: Eddy Shields Primary Care Provider: Kevin Hawthorne Other Providers: Eddy Shields; Ginger Aldridge; Kleber Espinosa; Alexander Lamb; Miles Galindo; Deshawn Bhatia; Sachin Liao; Rehana Watts; Alysia Fatima; Brielle Watters; Gaye Cardona; Ginger Watson; Darius Granda; Sav Rees; Rachelle Ely; Judy Zambrano; Latrice Hussein; Georgi Grove; Brian Monzon; Ariana Gan; Shayy Landin; Antonino Rodriguez
[2025-07-07] MEDS: WARFARIN SOD 5 MG TAB PO SCH (16:50)
== END 2025-07-07 17:38 | disposition home or self-care (01) | DRG 291 ==
LOC: ED 22:13 → EDINP 07-05 01:13 → 2S 07-05 01:51